=== PATIENT | female | born 1950 | race Caucasian/White ===

== ENCOUNTER 2018-03-30 15:47 | Inpatient (IN) | payer MEDICARE, OTHER ==
[2018-03-30] MEDS: LEVALBUTEROL (NEB) 1.25 MG/0.5 ML AMP INH (16:32)
[2018-03-30 16:59] LABS: ADD MAN DIFF? NO
[2018-03-30 17:01] LABS: BASOPHIL # 0.1 10^3/ul (0.0-0.1); BASOPHILS % 0.8 % (0.0-2.0); EOSINOPHILS # 0.1 10^3/ul (0.0-0.5); EOSINOPHILS % 0.7 % (0.0-7.0); HEMATOCRIT 40.9 % (37.0-47.0); HEMOGLOBIN 13.5 g/dl (12.0-16.0); IMMATURE GRANS #M 0.26 10^3/ul; IMMATURE GRANS % (M) 2.7 %; LYMPHOCYTES # 1.3 10^3/ul (0.8-2.9); LYMPHOCYTES % 13.6 % (15.0-51.0); MEAN CORPUSCULAR HEMOGLOBIN 30.1 pg (29.0-33.0); MEAN CORPUSCULAR VOLUME 91.1 fl (82.0-101.0); MEAN PLATELET VOLUME 9.7 fl (7.4-10.4); MONOCYTE # 0.9 10^3/ul (0.3-0.9); MONOCYTES % 9.1 % (0.0-11.0); NEUTROPHILS % 73.1 % (39.0-77.0); PLATELET COUNT 282 10^3/UL (140-415); RED BLOOD COUNT 4.49 10^6/ul (4.20-5.40); RED CELL DISTRIBUTION WIDTH 18.2 % (11.5-14.5)
[2018-03-30 17:01] LABS: WHITE BLOOD COUNT 9.6 10^3/ul (4.8-10.8)
[2018-03-30] MEDS: FUROSEMIDE 40 MG INJ IV (17:02)
[2018-03-30 17:17] LABS: ALANINE AMINOTRANSFERASE 20 IU/L (13-69); ALBUMIN 3.1 g/dl (3.3-4.9); ALBUMIN/GLOBULIN RATIO 1.03; ALKALINE PHOSPHATASE 207 IU/L (42-121); ANION GAP 13 (8-16); ASPARTATE AMINO TRANSFERASE 27 IU/L (15-46); BILIRUBIN,INDIRECT 0.3 mg/dl (0-1.1); BILIRUBIN,TOTAL 0.3 mg/dl (0.2-1.3); BLOOD UREA NITROGEN 22 mg/dl (7-20); CALCIUM 8.6 mg/dl (8.4-10.2); CARBON DIOXIDE 22 mmol/L (21-31); CHLORIDE 108 mmol/L (97-110); CREATININE 1.36 mg/dl (0.44-1.00); GLUCOSE 119 mg/dl (70-220); POTASSIUM 4.5 mmol/L (3.5-5.1); SODIUM 138 mmol/L (135-144); TOTAL PROTEIN 6.1 g/dl (6.1-8.1)
[2018-03-30 17:29] LABS: TROPONIN-I < 0.010 ng/ml (0.000-0.120)
[2018-03-30 17:44] LABS: B-TYPE NATRIURETIC PEPTIDE 354 PG/ML (0-125)
[2018-03-30] MEDS ORDERED: SOD CHLORIDE 0.9% 1,000 ML IV (17:49)
[2018-03-30] MEDS ORDERED: ONDANSETRON 4 MG INJ IV (18:00)
[2018-03-30] MEDS ORDERED: ACETAMINOPHEN 325 MG TAB PO (18:00)
[2018-03-30] MEDS: CEFEPIME 1GM/50 ML (PMX) 50 ML IVPB (18:17)
[2018-03-30] MEDS: VANCOMYCIN 1 GM (PMX) 250 ML IVPB (18:51)
[2018-03-30] MEDS ORDERED: morphine 2 MG INJ IV (19:00)
[2018-03-30] MEDS ORDERED: HYDROCODONE/APAP (5/325) TAB PO (19:00)
[2018-03-30] MEDS ORDERED: NACL 0.9% 3 ML SYG IV (19:00)
[2018-03-31] MEDS: ONDANSETRON 4 MG INJ IV (01:51)
[2018-03-31] MEDS: PANTOPRAZOLE (EC) 40 MG TAB PO (06:27)
[2018-03-31 07:02] LABS: ADD MAN DIFF? NO
[2018-03-31 07:11] LABS: WHITE BLOOD COUNT 8.8 10^3/ul (4.8-10.8)
[2018-03-31 07:11] LABS: BASOPHIL # 0.1 10^3/ul (0.0-0.1); BASOPHILS % 0.9 % (0.0-2.0); EOSINOPHILS % 0.5 % (0.0-7.0); HEMATOCRIT 41.6 % (37.0-47.0); HEMOGLOBIN 13.5 g/dl (12.0-16.0); IMMATURE GRANS #M 0.27 10^3/ul; IMMATURE GRANS % (M) 3.1 %; LYMPHOCYTES % 11.5 % (15.0-51.0); MEAN CORPUSCULAR HEMOGLOBIN 29.8 pg (29.0-33.0); MEAN CORPUSCULAR HGB CONC 32.5 g/dl (32.0-37.0); MEAN CORPUSCULAR VOLUME 91.8 fl (82.0-101.0); MEAN PLATELET VOLUME 10.1 fl (7.4-10.4); NEUTROPHIL # 6.4 10^3/ul (1.6-7.5); PLATELET COUNT 251 10^3/UL (140-415); RED BLOOD COUNT 4.53 10^6/ul (4.20-5.40); RED CELL DISTRIBUTION WIDTH 18.3 % (11.5-14.5)
[2018-03-31 07:29] LABS: INR 0.99; PROTIME 13.2 Sec (11.9-14.9)
[2018-03-31 07:33] LABS: ANION GAP 14 (8-16); BLOOD UREA NITROGEN 22 mg/dl (7-20); CALCIUM 8.3 mg/dl (8.4-10.2); CARBON DIOXIDE 22 mmol/L (21-31); CHLORIDE 107 mmol/L (97-110); CREATININE 1.39 mg/dl (0.44-1.00); GLUCOSE 152 mg/dl (70-220); MAGNESIUM 1.9 mg/dl (1.7-2.5); PHOSPHORUS 3.2 mg/dl (2.5-4.9); POTASSIUM 4.4 mmol/L (3.5-5.1); SODIUM 139 mmol/L (135-144)
[2018-03-31 07:52] LABS: HEMOGLOBIN A1C 5.6 % (0-5.9)
[2018-03-31] MEDS: POTASSIUM CHLORIDE (SR) 20 MEQ TAB PO (08:28)
[2018-03-31] MEDS: AMLODIPINE 10 MG TAB PO (08:28)
[2018-03-31] MEDS: HYDROXYCHLOROQUINE 200 MG TAB PO ×2 (08:28→08:42)
[2018-03-31] MEDS: LOSARTAN 50 MG TAB PO ×2 (08:29→08:41)
[2018-03-31] MEDS: LIDOCAINE 1% (MPF) 5 ML VIAL (10:13)
[2018-03-31] MEDS: ACETAMINOPHEN 325 MG TAB PO ×2 (10:32→20:23)
[2018-04-01] MEDS: PANTOPRAZOLE (EC) 40 MG TAB PO (06:32)
[2018-04-01] MEDS: POTASSIUM CHLORIDE (SR) 20 MEQ TAB PO (08:06)
[2018-04-01] MEDS: AMLODIPINE 10 MG TAB PO (08:06)
[2018-04-01] MEDS: FUROSEMIDE 40 MG INJ IV (10:22)
[2018-04-02] MEDS: PANTOPRAZOLE (EC) 40 MG TAB PO (05:33)
[2018-04-02 07:33] LABS: WHITE BLOOD COUNT 10.4 10^3/ul (4.8-10.8)
[2018-04-02 07:33] LABS: ABNORMAL IP MESSAGE 1; HEMATOCRIT 44.4 % (37.0-47.0); HEMOGLOBIN 14.5 g/dl (12.0-16.0); MEAN CORPUSCULAR HGB CONC 32.7 g/dl (32.0-37.0); MEAN CORPUSCULAR VOLUME 91.9 fl (82.0-101.0); MEAN PLATELET VOLUME 10.2 fl (7.4-10.4); PLATELET COUNT 217 10^3/UL (140-415); RED BLOOD COUNT 4.83 10^6/ul (4.20-5.40); RED CELL DISTRIBUTION WIDTH 18.3 % (11.5-14.5)
[2018-04-02 07:34] LABS: ADD MAN DIFF? YES; POSITIVE DIFF @See below
[2018-04-02 07:51] LABS: ANION GAP 14 (8-16); BLOOD UREA NITROGEN 28 mg/dl (7-20); CALCIUM 8.3 mg/dl (8.4-10.2); CARBON DIOXIDE 20 mmol/L (21-31); CHLORIDE 107 mmol/L (97-110); CREATININE 1.54 mg/dl (0.44-1.00); GLUCOSE 117 mg/dl (70-220); MAGNESIUM 1.9 mg/dl (1.7-2.5); PHOSPHORUS 2.9 mg/dl (2.5-4.9); POTASSIUM 4.8 mmol/L (3.5-5.1); SODIUM 136 mmol/L (135-144)
[2018-04-02 08:03] LABS: BAND NEUTROPHILS #M 0.6 10^3/ul (0.0-0.6); BAND NEUTROPHILS % (M) 6 % (0-4); BASOPHIL #M 0.1 10^3/ul (0.0-0.0); BASOPHILS % (M) 1 % (0-2); EOSINOPHILS % (M) 1 % (0-7); LYMPHOCYTES #M 1.1 10^3/ul (0.8-2.9); LYMPHOCYTES % (M) 11 % (15-51); METAMYELOCYTES #M 0.2 10^3/ul (0.0-0.0); METAMYELOCYTES %M 2 % (0-0); MONOCYTES % (M) 10 % (0-11); MYELOCYTES #M 0.3 10^3/ul (0.0-0.0); MYELOCYTES % (M) 3 % (0-0); PLATELET ESTIMATE NORMAL; POLYCHROMASIA 1+ (0-0); REACTIVE LYMPHOCYTES #M 0.3 10^3/ul (0.0-0.0); REACTIVE LYMPHOCYTES% (M) 3 % (0-0); SEG NEUT #M 6.6 10^3/ul (1.6-7.5); SEGMENTED NEUTROPHILS (M) % 63 % (39-77); SMUDGE%M 3 % (0-0)
[2018-04-02] MEDS ORDERED: FUROSEMIDE 40 MG INJ IV (09:00)
[2018-04-02] MEDS: POTASSIUM CHLORIDE (SR) 20 MEQ TAB PO (09:00)
[2018-04-02] MEDS: AMLODIPINE 10 MG TAB PO (11:21)
[2018-04-02] MEDS: FUROSEMIDE 40 MG INJ IV (12:15)
[2018-04-02 12:56] LABS: NIL 0.04 IU/mL; QUANTIFERON(R)-TB GOLD NEGATIVE (NEGATIVE); TB-NIL 0.31 IU/mL
[2018-04-03 07:19] LABS: ABNORMAL IP MESSAGE 1; HEMATOCRIT 42.8 % (37.0-47.0); MEAN CORPUSCULAR HEMOGLOBIN 29.4 pg (29.0-33.0); MEAN CORPUSCULAR HGB CONC 32.7 g/dl (32.0-37.0); MEAN CORPUSCULAR VOLUME 89.7 fl (82.0-101.0); MEAN PLATELET VOLUME 10.1 fl (7.4-10.4); PLATELET COUNT 196 10^3/UL (140-415); POSITIVE DIFF @See below; RED BLOOD COUNT 4.77 10^6/ul (4.20-5.40); RED CELL DISTRIBUTION WIDTH 18.2 % (11.5-14.5)
[2018-04-03 07:19] LABS: WHITE BLOOD COUNT 11.5 10^3/ul (4.8-10.8)
[2018-04-03 07:20] LABS: ADD MAN DIFF? YES
[2018-04-03] MEDS: PANTOPRAZOLE (EC) 40 MG TAB PO (07:30)
[2018-04-03 07:38] LABS: INR 0.93; PROTIME 12.6 Sec (11.9-14.9)
[2018-04-03 07:39] LABS: ANION GAP 12 (8-16); BLOOD UREA NITROGEN 33 mg/dl (7-20); CALCIUM 8.3 mg/dl (8.4-10.2); CARBON DIOXIDE 24 mmol/L (21-31); CHLORIDE 102 mmol/L (97-110); CREATININE 1.71 mg/dl (0.44-1.00); GLUCOSE 115 mg/dl (70-220); POTASSIUM 5.2 mmol/L (3.5-5.1); SODIUM 133 mmol/L (135-144)
[2018-04-03 07:48] LABS: BAND NEUTROPHILS #M 1.9 10^3/ul (0.0-0.6); BAND NEUTROPHILS % (M) 17 % (0-4); BURR CELLS 2+ (0-0); EOSINOPHILS % (M) 2 % (0-7); LYMPHOCYTES #M 0.8 10^3/ul (0.8-2.9); LYMPHOCYTES % (M) 7 % (15-51); MONOCYTE #M 0.8 10^3/ul (0.3-0.9); MONOCYTES % (M) 7 % (0-11); MYELOCYTES #M 0.3 10^3/ul (0.0-0.0); MYELOCYTES % (M) 3 % (0-0); PLATELET ESTIMATE NORMAL; POIKILOCYTOSIS 2+ (0-0); REACTIVE LYMPHOCYTES #M 0.6 10^3/ul (0.0-0.0); REACTIVE LYMPHOCYTES% (M) 6 % (0-0); SEG NEUT #M 6.9 10^3/ul (1.6-7.5); SEGMENTED NEUTROPHILS (M) % 58 % (39-77); SMUDGE%M 22 % (0-0)
[2018-04-03] MEDS: AMLODIPINE 10 MG TAB PO (07:52)
[2018-04-03] MEDS: FUROSEMIDE 40 MG INJ IV (07:52)
[2018-04-03] MEDS: POTASSIUM CHLORIDE (SR) 20 MEQ TAB PO ×2 (07:52→09:00)
[2018-04-03] MEDS ORDERED: HEPARIN 1000 UNITS/NS (A-LINE) 1,000 ML (11:14)
[2018-04-03] MEDS ORDERED: LIDOCAINE 1% (MDV) 20 ML INJ (11:14)
[2018-04-03] MEDS ORDERED: FENTAnyl 50 MCG/ML VIAL (11:25)
[2018-04-03] MEDS ORDERED: MIDAZOLAM 1 MG/ML 2 ML INJ (11:25)
[2018-04-03] MEDS ORDERED: ACETAMINOPHEN 325 MG TAB PO (12:30)
[2018-04-03] MEDS ORDERED: OXYCODONE/ACETAMINOPHEN (5/325) TAB PO (12:30)
[2018-04-03 13:02] LABS: FLD MN% 77.1 %; FLD PMN% 22.9 %; FLD RBC 1000 /uL; FLD WBC 201 /cmm
[2018-04-03 13:30] LABS: FLD CLARITY CLOUDY; FLD COLOR YELLOW; PATH REVIEW? YES
[2018-04-03 13:30] LABS: FLD TYPE THORACENTHESIS
[2018-04-03 13:44] LABS: FLUID GLUCOSE 115 mg/dl; FLUID TYPE PERICARDIAL FLUID
[2018-04-03 13:46] LABS: FLUID TOTAL PROTEIN 3.4 g/dl
[2018-04-03 13:48] LABS: FLUID LD 2790 U/L; FLUID TYPE PERICARDIAL FLUID
[2018-04-03] MEDS: ONDANSETRON 4 MG INJ IV (19:00)
[2018-04-04 05:14] LABS: ABNORMAL IP MESSAGE 1; HEMATOCRIT 42.6 % (37.0-47.0); MEAN CORPUSCULAR HEMOGLOBIN 29.8 pg (29.0-33.0); MEAN CORPUSCULAR HGB CONC 32.9 g/dl (32.0-37.0); MEAN CORPUSCULAR VOLUME 90.6 fl (82.0-101.0); MEAN PLATELET VOLUME 10.3 fl (7.4-10.4); PLATELET COUNT 175 10^3/UL (140-415); RED CELL DISTRIBUTION WIDTH 18.3 % (11.5-14.5)
[2018-04-04 05:14] LABS: WHITE BLOOD COUNT 12.1 10^3/ul (4.8-10.8)
[2018-04-04] MEDS: ONDANSETRON 4 MG INJ IV ×4 (05:35→21:59)
[2018-04-04 05:39] LABS: ANION GAP 12 (8-16); BLOOD UREA NITROGEN 35 mg/dl (7-20); CARBON DIOXIDE 23 mmol/L (21-31); CHLORIDE 104 mmol/L (97-110); CREATININE 1.85 mg/dl (0.44-1.00); GLUCOSE 122 mg/dl (70-220); POTASSIUM 5.1 mmol/L (3.5-5.1); SODIUM 134 mmol/L (135-144)
[2018-04-04 06:22] LABS: POSITIVE DIFF @See below
[2018-04-04 06:23] LABS: ADD MAN DIFF? YES
[2018-04-04] MEDS: PANTOPRAZOLE (EC) 40 MG TAB PO (07:03)
[2018-04-04 08:08] LABS: ANISOCYTOSIS 3+ (0-0); BAND NEUTROPHILS #M 1.5 10^3/ul (0.0-0.6); BAND NEUTROPHILS % (M) 13 % (0-4); GIANT THROMBO% (M) 2 % (0-0); LYMPHOCYTES #M 1.5 10^3/ul (0.8-2.9); LYMPHOCYTES % (M) 13 % (15-51); METAMYELOCYTES #M 0.2 10^3/ul (0.0-0.0); METAMYELOCYTES %M 2 % (0-0); MONOCYTE #M 0.1 10^3/ul (0.3-0.9); MONOCYTES % (M) 1 % (0-11); MYELOCYTES #M 0.3 10^3/ul (0.0-0.0); MYELOCYTES % (M) 3 % (0-0); PLATELET ESTIMATE NORMAL; POIKILOCYTOSIS 3+ (0-0); POLYCHROMASIA 3+ (0-0); SEG NEUT #M 8.4 10^3/ul (1.6-7.5); SEGMENTED NEUTROPHILS (M) % 68 % (39-77); SMUDGE%M 5 % (0-0)
[2018-04-04] MEDS: AMLODIPINE 10 MG TAB PO (09:54)
[2018-04-04] MEDS: POTASSIUM CHLORIDE (SR) 20 MEQ TAB PO (09:55)
[2018-04-05 05:31] LABS: WHITE BLOOD COUNT 14.5 10^3/ul (4.8-10.8)
[2018-04-05 05:31] LABS: ABNORMAL IP MESSAGE 1; HEMATOCRIT 41.2 % (37.0-47.0); HEMOGLOBIN 13.4 g/dl (12.0-16.0); MEAN CORPUSCULAR HEMOGLOBIN 29.5 pg (29.0-33.0); MEAN CORPUSCULAR HGB CONC 32.5 g/dl (32.0-37.0); MEAN CORPUSCULAR VOLUME 90.5 fl (82.0-101.0); MEAN PLATELET VOLUME 10.5 fl (7.4-10.4); RED BLOOD COUNT 4.55 10^6/ul (4.20-5.40); RED CELL DISTRIBUTION WIDTH 18.3 % (11.5-14.5)
[2018-04-05 06:01] LABS: ADD MAN DIFF? YES; PLATELET COUNT 128 10^3/UL (140-415); POSITIVE DIFF @See below
[2018-04-05 06:03] LABS: ANION GAP 10 (8-16); BLOOD UREA NITROGEN 37 mg/dl (7-20); CALCIUM 7.8 mg/dl (8.4-10.2); CARBON DIOXIDE 23 mmol/L (21-31); CHLORIDE 105 mmol/L (97-110); CREATININE 2.05 mg/dl (0.44-1.00); GLUCOSE 115 mg/dl (70-220); MAGNESIUM 1.9 mg/dl (1.7-2.5); PHOSPHORUS 3.2 mg/dl (2.5-4.9); POTASSIUM 5.5 mmol/L (3.5-5.1); SODIUM 132 mmol/L (135-144)
[2018-04-05] MEDS: PANTOPRAZOLE (EC) 40 MG TAB PO (06:21)
[2018-04-05] MEDS ORDERED: DIPHENHYDRAMINE 50 MG INJ IM (06:30)
[2018-04-05] MEDS: DIPHENHYDRAMINE 50 MG CAP PO ×2 (07:21→21:31)
[2018-04-05] MEDS: NA POLYST SULFON 15 GM/60 ML BTL PO (07:21)
[2018-04-05 08:08] LABS: BAND NEUTROPHILS #M 0.2 10^3/ul (0.0-0.6); BAND NEUTROPHILS % (M) 2 % (0-4); LYMPHOCYTES #M 0.7 10^3/ul (0.8-2.9); LYMPHOCYTES % (M) 5 % (15-51); METAMYELOCYTES #M 0.2 10^3/ul (0.0-0.0); METAMYELOCYTES %M 2 % (0-0); MONOCYTE #M 0.4 10^3/ul (0.3-0.9); MONOCYTES % (M) 3 % (0-11); MYELOCYTES #M 0.5 10^3/ul (0.0-0.0); MYELOCYTES % (M) 4 % (0-0); PLATELET ESTIMATE DECREASED; REACTIVE LYMPHOCYTES #M 0.2 10^3/ul (0.0-0.0); REACTIVE LYMPHOCYTES% (M) 2 % (0-0); SEG NEUT #M 11.9 10^3/ul (1.6-7.5); SEGMENTED NEUTROPHILS (M) % 82 % (39-77); SMUDGE%M 56 % (0-0)
[2018-04-05] MEDS: POTASSIUM CHLORIDE (SR) 20 MEQ TAB PO (09:00)
[2018-04-05] MEDS: LACTOBACILLUS RHAMNOSUS CAP PO (10:08)
[2018-04-05] MEDS: FUROSEMIDE 40 MG INJ IV (18:04)
[2018-04-05] MEDS: ONDANSETRON 4 MG INJ IV (23:19)
[2018-04-06 05:54] LABS: WHITE BLOOD COUNT 18.2 10^3/ul (4.8-10.8)
[2018-04-06 05:54] LABS: ABNORMAL IP MESSAGE 1; HEMATOCRIT 44.2 % (37.0-47.0); HEMOGLOBIN 14.5 g/dl (12.0-16.0); MEAN CORPUSCULAR HEMOGLOBIN 29.7 pg (29.0-33.0); MEAN CORPUSCULAR HGB CONC 32.8 g/dl (32.0-37.0); MEAN CORPUSCULAR VOLUME 90.4 fl (82.0-101.0); NUCLEATED RED BLOOD CELLS% 0.1 /100WBC (0.0-0.0); PLATELET COUNT 126 10^3/UL (140-415); RED BLOOD COUNT 4.89 10^6/ul (4.20-5.40); RED CELL DISTRIBUTION WIDTH 17.9 % (11.5-14.5)
[2018-04-06 06:07] LABS: ADD MAN DIFF? YES; POSITIVE DIFF @See below
[2018-04-06] MEDS: PANTOPRAZOLE (EC) 40 MG TAB PO (06:14)
[2018-04-06 06:26] LABS: ANION GAP 10 (8-16); BLOOD UREA NITROGEN 38 mg/dl (7-20); CALCIUM 7.8 mg/dl (8.4-10.2); CARBON DIOXIDE 21 mmol/L (21-31); CHLORIDE 104 mmol/L (97-110); CREATININE 2.07 mg/dl (0.44-1.00); GLUCOSE 114 mg/dl (70-220); POTASSIUM 5.1 mmol/L (3.5-5.1); SODIUM 130 mmol/L (135-144)
[2018-04-06 08:39] LABS: ANISOCYTOSIS 1+ (0-0); BAND NEUTROPHILS #M 3.2 10^3/ul (0.0-0.6); BAND NEUTROPHILS % (M) 18 % (0-4); BURR CELLS 3+ (0-0); LYMPHOCYTES #M 0.7 10^3/ul (0.8-2.9); LYMPHOCYTES % (M) 4 % (15-51); METAMYELOCYTES #M 0.1 10^3/ul (0.0-0.0); METAMYELOCYTES %M 1 % (0-0); MONOCYTES % (M) 6 % (0-11); MYELOCYTES #M 1.4 10^3/ul (0.0-0.0); MYELOCYTES % (M) 8 % (0-0); PLATELET ESTIMATE DECREASED; POIKILOCYTOSIS 3+ (0-0); POLYCHROMASIA 1+ (0-0); SEGMENTED NEUTROPHILS (M) % 63 % (39-77); SMUDGE%M 10 % (0-0)
[2018-04-06] MEDS: FUROSEMIDE 40 MG INJ IV (08:58)
[2018-04-06] MEDS: POTASSIUM CHLORIDE (SR) 20 MEQ TAB PO (08:59)
[2018-04-06] MEDS: LACTOBACILLUS RHAMNOSUS CAP PO (09:00)
[2018-04-06] MEDS: ONDANSETRON 4 MG INJ IV (09:08)
[2018-04-06] MEDS ORDERED: METOLAZONE 2.5 MG TAB PO (12:00)
[2018-04-06] MEDS: BUMETANIDE 2 MG in DEXTROSE 5% 17 ML IVPB (12:59)
[2018-04-06] MEDS ORDERED: ISOSORBIDE DINITRATE 5 MG TAB PO (13:00)
[2018-04-06] MEDS: METOLAZONE 5 MG TAB PO (14:08)
[2018-04-06] MEDS ORDERED: morphine LIQ (10 MG/5 ML) CUP PO (15:00)
[2018-04-07 06:02] LABS: WHITE BLOOD COUNT 21.3 10^3/ul (4.8-10.8)
[2018-04-07 06:02] LABS: ABNORMAL IP MESSAGE 1; HEMATOCRIT 44.8 % (37.0-47.0); HEMOGLOBIN 14.9 g/dl (12.0-16.0); MEAN CORPUSCULAR HEMOGLOBIN 29.6 pg (29.0-33.0); MEAN CORPUSCULAR HGB CONC 33.3 g/dl (32.0-37.0); MEAN CORPUSCULAR VOLUME 89.1 fl (82.0-101.0); MEAN PLATELET VOLUME 10.5 fl (7.4-10.4); NUCLEATED RED BLOOD CELLS% 0.1 /100WBC (0.0-0.0); PLATELET COUNT 100 10^3/UL (140-415); RED BLOOD COUNT 5.03 10^6/ul (4.20-5.40); RED CELL DISTRIBUTION WIDTH 18.1 % (11.5-14.5)
[2018-04-07 06:05] LABS: POSITIVE DIFF @See below
[2018-04-07 06:06] LABS: ADD MAN DIFF? YES
[2018-04-07 06:52] LABS: ALBUMIN 2.3 g/dl (3.3-4.9); ANION GAP 13 (8-16); BLOOD UREA NITROGEN 44 mg/dl (7-20); CALCIUM 7.8 mg/dl (8.4-10.2); CARBON DIOXIDE 21 mmol/L (21-31); CHLORIDE 101 mmol/L (97-110); CREATININE 2.45 mg/dl (0.44-1.00); GLUCOSE 115 mg/dl (70-220); MAGNESIUM 1.9 mg/dl (1.7-2.5); POTASSIUM 4.8 mmol/L (3.5-5.1); SODIUM 130 mmol/L (135-144)
[2018-04-07 07:50] LABS: ANISOCYTOSIS 1+ (0-0); BAND NEUTROPHILS #M 5.1 10^3/ul (0.0-0.6); BAND NEUTROPHILS % (M) 24 % (0-4); GIANT THROMBO% (M) 2 % (0-0); LYMPHOCYTES #M 0.6 10^3/ul (0.8-2.9); LYMPHOCYTES % (M) 3 % (15-51); METAMYELOCYTES #M 0.4 10^3/ul (0.0-0.0); METAMYELOCYTES %M 2 % (0-0); MONOCYTE #M 0.8 10^3/ul (0.3-0.9); MONOCYTES % (M) 4 % (0-11); MYELOCYTES #M 0.8 10^3/ul (0.0-0.0); MYELOCYTES % (M) 4 % (0-0); PLATELET ESTIMATE DECREASED; POIKILOCYTOSIS 2+ (0-0); REACTIVE LYMPHOCYTES #M 0.4 10^3/ul (0.0-0.0); REACTIVE LYMPHOCYTES% (M) 2 % (0-0); SEG NEUT #M 14.1 10^3/ul (1.6-7.5); SEGMENTED NEUTROPHILS (M) % 61 % (39-77); SMUDGE%M 13 % (0-0)
[2018-04-07] MEDS: POTASSIUM CHLORIDE (SR) 20 MEQ TAB PO (08:35)
[2018-04-07] MEDS: LACTOBACILLUS RHAMNOSUS CAP PO (08:36)
[2018-04-07] MEDS: FAMOTIDINE 20 MG TAB PO (08:36)
[2018-04-07] MEDS: ONDANSETRON 4 MG INJ IV (10:50)
[2018-04-07] MEDS: ACETAMINOPHEN 325 MG TAB PO ×2 (10:50→18:13)
[2018-04-07] MEDS: ALBUTEROL 0.083% (NEB) 2.5 MG/3 ML AMP HHN ×3 (11:20→20:39)
[2018-04-07] MEDS: TRIAMCINOLONE ACET 0.1% ORAB 5 GM MM ×2 (11:30→17:30)
[2018-04-07] MEDS: hydrALAzine 20 MG INJ IV (11:50)
[2018-04-07] MEDS: FUROSEMIDE 40 MG INJ IV ×2 (12:54→18:13)
[2018-04-07 13:36] LABS: AADO2 Arterial 440.5 mmHg (7.0-24.0); Allen Test ACCEPTAB; Arterial Base Excess -2.6 mmol/L (-3.0-3); Arterial Blood Gas Oxygen Sat 99.4 mmHG (95.0-98.0); Arterial COHb 0.4 % (0.0-3.0); Arterial Fraction of Oxyhgb 98.7 % (93.0-99.0); Arterial HCO3 18.2 mmol/L (22.0-26.0); Arterial MetHb 0.3 % (0.0-1.5); Arterial Total Hemglobin 15.6 g/dl (12.0-18.0); Arterial pCO2 23.4 mmhg (35-45); MODE MASK - NRB; Site Right Radial
[2018-04-07] MEDS: BUMETANIDE 1 MG INJ IV (13:36)
[2018-04-07] MEDS: LIDOCAINE 1% (MPF) 5 ML VIAL (15:17)
[2018-04-07 15:58] LABS: FLUID TOTAL PROTEIN 3.3 g/dl
[2018-04-07] MEDS: CEFEPIME 1GM/50 ML (PMX) 50 ML IVPB (16:19)
[2018-04-07 17:43] LABS: AADO2 Arterial 172.1 mmHg (7.0-24.0); Arterial Base Excess -3.4 mmol/L (-3.0-3); Arterial Blood Gas Oxygen Sat 95.7 mmHG (95.0-98.0); Arterial COHb 0.4 % (0.0-3.0); Arterial HCO3 19.3 mmol/L (22.0-26.0); Arterial MetHb 0.3 % (0.0-1.5); Arterial Total Hemglobin 15.9 g/dl (12.0-18.0); Arterial pCO2 29.3 mmhg (35-45); Blood Gas IEPAP 15/5; Blood Gas PS 10; MODE MASK - BIPAP; Site Right Brachial
[2018-04-08] MEDS: ONDANSETRON 4 MG INJ IV ×3 (01:10→21:04)
[2018-04-08] MEDS: ALBUTEROL 0.083% (NEB) 2.5 MG/3 ML AMP HHN ×5 (01:35→21:16)
[2018-04-08 05:46] LABS: ABNORMAL IP MESSAGE 1; HEMATOCRIT 44.2 % (37.0-47.0); HEMOGLOBIN 15.2 g/dl (12.0-16.0); MEAN CORPUSCULAR HEMOGLOBIN 30.1 pg (29.0-33.0); MEAN CORPUSCULAR HGB CONC 34.4 g/dl (32.0-37.0); MEAN CORPUSCULAR VOLUME 87.5 fl (82.0-101.0); MEAN PLATELET VOLUME 10.6 fl (7.4-10.4); NUCLEATED RED BLOOD CELLS% 0.1 /100WBC (0.0-0.0); PLATELET COUNT 91 10^3/UL (140-415); RED BLOOD COUNT 5.05 10^6/ul (4.20-5.40); RED CELL DISTRIBUTION WIDTH 18.2 % (11.5-14.5)
[2018-04-08 05:46] LABS: WHITE BLOOD COUNT 22.9 10^3/ul (4.8-10.8)
[2018-04-08 06:20] LABS: ALBUMIN 2.3 g/dl (3.3-4.9); ANION GAP 13 (8-16); BLOOD UREA NITROGEN 54 mg/dl (7-20); CALCIUM 7.6 mg/dl (8.4-10.2); CARBON DIOXIDE 19 mmol/L (21-31); CHLORIDE 102 mmol/L (97-110); GLUCOSE 115 mg/dl (70-220); MAGNESIUM 1.8 mg/dl (1.7-2.5); PHOSPHORUS 4.9 mg/dl (2.5-4.9); POTASSIUM 5.1 mmol/L (3.5-5.1); SODIUM 129 mmol/L (135-144)
[2018-04-08 06:32] LABS: ADD MAN DIFF? YES; POSITIVE DIFF @See below
[2018-04-08] MEDS: TRIAMCINOLONE ACET 0.1% ORAB 5 GM MM ×3 (06:50→17:38)
[2018-04-08] MEDS: FUROSEMIDE 40 MG INJ IV (06:50)
[2018-04-08 08:27] LABS: ANISOCYTOSIS 1+ (0-0); BAND NEUTROPHILS #M 3.6 10^3/ul (0.0-0.6); BAND NEUTROPHILS % (M) 16 % (0-4); BURR CELLS 3+ (0-0); LYMPHOCYTES #M 0.9 10^3/ul (0.8-2.9); LYMPHOCYTES % (M) 4 % (15-51); METAMYELOCYTES #M 0.4 10^3/ul (0.0-0.0); METAMYELOCYTES %M 2 % (0-0); MONOCYTE #M 1.6 10^3/ul (0.3-0.9); MONOCYTES % (M) 7 % (0-11); MYELOCYTES #M 0.4 10^3/ul (0.0-0.0); MYELOCYTES % (M) 2 % (0-0); PLATELET ESTIMATE DECREASED; POIKILOCYTOSIS 3+ (0-0); POLYCHROMASIA 1+ (0-0); REACTIVE LYMPHOCYTES #M 0.2 10^3/ul (0.0-0.0); REACTIVE LYMPHOCYTES% (M) 1 % (0-0); SEG NEUT #M 16.4 10^3/ul (1.6-7.5); SEGMENTED NEUTROPHILS (M) % 68 % (39-77); SMUDGE%M 2 % (0-0)
[2018-04-08] MEDS: FAMOTIDINE 20 MG TAB PO (09:16)
[2018-04-08] MEDS: LACTOBACILLUS RHAMNOSUS CAP PO (09:20)
[2018-04-08] MEDS ORDERED: DOCUSATE SODIUM 100 MG CAP PO (10:00)
[2018-04-08] MEDS ORDERED: DIPHENHYDRAMINE 25 MG CAP (11:58)
[2018-04-08] MEDS: DIPHENHYDRAMINE 25 MG CAP PO (12:06)
[2018-04-08] MEDS: DOCUSATE SODIUM 100 MG CAP PO (12:06)
[2018-04-08] MEDS: POLYETHYLENE GLYCOL 17 GM PACKET PO (12:06)
[2018-04-08] MEDS ORDERED: DIPHENHYDRAMINE 50 MG CAP PO (13:00)
[2018-04-08 14:49] LABS: ANION GAP 13 (8-16); BLOOD UREA NITROGEN 57 mg/dl (7-20); CALCIUM 7.6 mg/dl (8.4-10.2); CARBON DIOXIDE 20 mmol/L (21-31); CHLORIDE 100 mmol/L (97-110); GLUCOSE 121 mg/dl (70-220); POTASSIUM 5.4 mmol/L (3.5-5.1); SODIUM 128 mmol/L (135-144)
[2018-04-08 14:56] LABS: CREATININE 3.24 mg/dl (0.44-1.00)
[2018-04-08] MEDS: CEFEPIME 1GM/50 ML (PMX) 50 ML IVPB (15:55)
[2018-04-08 15:57] LABS: ADD UMIC YES; UR ASCORBIC ACID NEGATIVE (NEGATIVE); UR BACTERIA FEW /HPF (NONE SEEN); UR BILIRUBIN (Dip) NEGATIVE (NEGATIVE); UR BLOOD (Dip) NEGATIVE (NEGATIVE); UR CLARITY SLIGHTLY CLOUDY (CLEAR); UR COLOR YELLOW (YELLOW); UR GLUCOSE (Dip) NEGATIVE (NEGATIVE); UR HYALINE CAST FEW /HPF (NONE SEEN); UR KETONES (Dip) NEGATIVE (NEGATIVE); UR LEUKOCYTE ESTERASE (Dip) 2+ Leu/ul (NEGATIVE); UR NITRITE (Dip) NEGATIVE (NEGATIVE); UR RBC 3 /HPF (0-5); UR SPECIFIC GRAVITY (Dip) 1.012 (1.003-1.030); UR SQUAMOUS EPITHELIAL CELL FEW /HPF (FEW); UR TOTAL PROTEIN (Dip) NEGATIVE (NEGATIVE); UR TRANSITIONAL EPI CELL FEW /HPF (NONE SEEN); UR UROBILINOGEN (Dip) NEGATIVE (NEGATIVE); UR WBC 40 /HPF (0-5)
[2018-04-08 16:04] LABS: CREATININE,URINE RANDOM 109.21 mg/dl (20-320)
[2018-04-08 16:07] LABS: SODIUM,URINE RANDOM < 13 mmol/L (30-90)
[2018-04-09] MEDS: ALBUMIN HUMAN 25% 100 ML IV ×2 (00:19→03:52)
[2018-04-09] MEDS: ALBUTEROL 0.083% (NEB) 2.5 MG/3 ML AMP HHN ×4 (01:53→20:00)
[2018-04-09 06:07] LABS: ABNORMAL IP MESSAGE 1; HEMATOCRIT 39.4 % (37.0-47.0); HEMOGLOBIN 12.8 g/dl (12.0-16.0); MEAN CORPUSCULAR HEMOGLOBIN 29.8 pg (29.0-33.0); MEAN CORPUSCULAR HGB CONC 32.5 g/dl (32.0-37.0); MEAN CORPUSCULAR VOLUME 91.8 fl (82.0-101.0); MEAN PLATELET VOLUME 11.8 fl (7.4-10.4); NUCLEATED RED BLOOD CELLS% 0.2 /100WBC (0.0-0.0); PLATELET COUNT 72 10^3/UL (140-415); RED BLOOD COUNT 4.29 10^6/ul (4.20-5.40); RED CELL DISTRIBUTION WIDTH 18.2 % (11.5-14.5)
[2018-04-09] MEDS: SOD CHLORIDE 0.9% 250 ML IV (06:17)
[2018-04-09 06:21] LABS: ADD MAN DIFF? YES; POSITIVE DIFF @See below
[2018-04-09 06:44] LABS: ANION GAP 16 (8-16); BLOOD UREA NITROGEN 58 mg/dl (7-20); CALCIUM 7.9 mg/dl (8.4-10.2); CARBON DIOXIDE 21 mmol/L (21-31); CHLORIDE 98 mmol/L (97-110); GLUCOSE 85 mg/dl (70-220); MAGNESIUM 1.9 mg/dl (1.7-2.5); PHOSPHORUS 4.9 mg/dl (2.5-4.9); POTASSIUM 4.9 mmol/L (3.5-5.1); SODIUM 130 mmol/L (135-144)
[2018-04-09 06:54] LABS: CREATININE 3.28 mg/dl (0.44-1.00)
[2018-04-09] MEDS ORDERED: LIDOCAINE 2% (SDV) 5 ML INJ (07:00)
[2018-04-09] MEDS ORDERED: CEFAZOLIN 1 GM INJ (07:00)
[2018-04-09] MEDS: SOD CHLORIDE 0.9% 1,000 ML IV ×2 (07:30→20:40)
[2018-04-09] MEDS: TRIAMCINOLONE ACET 0.1% ORAB 5 GM MM ×3 (07:30→17:20)
[2018-04-09 07:48] LABS: ANISOCYTOSIS 1+ (0-0); BAND NEUTROPHILS #M 6.6 10^3/ul (0.0-0.6); BAND NEUTROPHILS % (M) 29 % (0-4); GIANT THROMBO% (M) 2 % (0-0); LYMPHOCYTES #M 0.4 10^3/ul (0.8-2.9); LYMPHOCYTES % (M) 2 % (15-51); METAMYELOCYTES #M 0.9 10^3/ul (0.0-0.0); METAMYELOCYTES %M 4 % (0-0); MICROCYTOSIS 1+ (0-0); MONOCYTE #M 0.2 10^3/ul (0.3-0.9); MONOCYTES % (M) 1 % (0-11); MYELOCYTES #M 1.1 10^3/ul (0.0-0.0); MYELOCYTES % (M) 5 % (0-0); PLATELET ESTIMATE SIG DECREASED; REACTIVE LYMPHOCYTES #M 0.2 10^3/ul (0.0-0.0); REACTIVE LYMPHOCYTES% (M) 1 % (0-0); SEG NEUT #M 14.9 10^3/ul (1.6-7.5); SEGMENTED NEUTROPHILS (M) % 58 % (39-77); SMUDGE%M 4 % (0-0)
[2018-04-09] MEDS ORDERED: FENTAnyl 50 MCG/ML VIAL (07:58)
[2018-04-09] MEDS ORDERED: MIDAZOLAM 1 MG/ML 2 ML INJ (07:58)
[2018-04-09] MEDS ORDERED: METOCLOPRAMIDE 10 MG INJ (07:59)
[2018-04-09] MEDS: FAMOTIDINE 20 MG TAB PO (09:00)
[2018-04-09] MEDS: DOCUSATE SODIUM 100 MG CAP PO (09:00)
[2018-04-09] MEDS: LACTOBACILLUS RHAMNOSUS CAP PO (09:00)
[2018-04-09] MEDS: POLYETHYLENE GLYCOL 17 GM PACKET PO (09:00)
[2018-04-09] MEDS ORDERED: IOHEXOL 300MG/ML 30 ML BTL (09:38)
[2018-04-09] MEDS ORDERED: ONDANSETRON 4 MG INJ IV (10:00)
[2018-04-09] MEDS ORDERED: IPRATROPIUM (NEB) 0.5 MG/2.5 ML AMP HHN (10:00)
[2018-04-09] MEDS ORDERED: HYDROmorphONE 1 MG/5 ML IV SYRINGE IV ×2 (10:00)
[2018-04-09] MEDS ORDERED: LEVALBUTEROL (NEB) 1.25 MG/0.5 ML AMP HHN (10:00)
[2018-04-09] MEDS ORDERED: DIPHENHYDRAMINE 50 MG INJ IV (10:00)
[2018-04-09] MEDS ORDERED: FENTAnyl 50 MCG/ML VIAL IV (10:00)
[2018-04-09] MEDS: LIDOCAINE 2% (SDV) 5 ML INJ INJ (11:02)
[2018-04-09] MEDS ORDERED: ETOMIDATE 20 MG INJ (11:33)
[2018-04-09 14:30] LABS: ANION GAP 15 (8-16); BLOOD UREA NITROGEN 61 mg/dl (7-20); CALCIUM 8.5 mg/dl (8.4-10.2); CARBON DIOXIDE 16 mmol/L (21-31); CHLORIDE 103 mmol/L (97-110); GLUCOSE 87 mg/dl (70-220); POTASSIUM 4.8 mmol/L (3.5-5.1); SODIUM 129 mmol/L (135-144)
[2018-04-09 15:01] LABS: CREATININE 3.08 mg/dl (0.44-1.00)
[2018-04-09] MEDS: CEFEPIME 1GM/50 ML (PMX) 50 ML IVPB (16:26)
[2018-04-09] MEDS: ONDANSETRON 4 MG INJ IV ×2 (16:26→20:32)
[2018-04-09] MEDS: morphine 2 MG INJ IV ×2 (16:26→20:47)
[2018-04-09 21:59] LABS: RHEUMATOID FACTOR NEGATIVE (NEGATIVE)
[2018-04-10] MEDS: ALBUTEROL 0.083% (NEB) 2.5 MG/3 ML AMP HHN ×4 (02:00→19:36)
[2018-04-10] MEDS: ONDANSETRON 4 MG INJ IV ×4 (02:30→22:47)
[2018-04-10 06:31] LABS: WHITE BLOOD COUNT 27.9 10^3/ul (4.8-10.8)
[2018-04-10 06:31] LABS: ABNORMAL IP MESSAGE 1; HEMATOCRIT 47.1 % (37.0-47.0); HEMOGLOBIN 15.5 g/dl (12.0-16.0); MEAN CORPUSCULAR HEMOGLOBIN 29.5 pg (29.0-33.0); MEAN CORPUSCULAR HGB CONC 32.9 g/dl (32.0-37.0); MEAN CORPUSCULAR VOLUME 89.5 fl (82.0-101.0); MEAN PLATELET VOLUME 10.4 fl (7.4-10.4); NUCLEATED RED BLOOD CELLS% 0.3 /100WBC (0.0-0.0); PLATELET COUNT 74 10^3/UL (140-415); RED BLOOD COUNT 5.26 10^6/ul (4.20-5.40); RED CELL DISTRIBUTION WIDTH 19.3 % (11.5-14.5)
[2018-04-10 06:34] LABS: POSITIVE DIFF @See below
[2018-04-10 06:35] LABS: ADD MAN DIFF? YES
[2018-04-10 07:22] LABS: ANION GAP 13 (8-16); BLOOD UREA NITROGEN 61 mg/dl (7-20); CALCIUM 7.9 mg/dl (8.4-10.2); CARBON DIOXIDE 16 mmol/L (21-31); CHLORIDE 105 mmol/L (97-110); GLUCOSE 71 mg/dl (70-220); MAGNESIUM 1.9 mg/dl (1.7-2.5); PHOSPHORUS 4.7 mg/dl (2.5-4.9); SODIUM 129 mmol/L (135-144)
[2018-04-10] MEDS: TRIAMCINOLONE ACET 0.1% ORAB 5 GM MM ×3 (07:30→16:51)
[2018-04-10 07:33] LABS: CREATININE 3.17 mg/dl (0.44-1.00)
[2018-04-10 08:37] LABS: ANISOCYTOSIS 1+ (0-0); BAND NEUTROPHILS #M 5.8 10^3/ul (0.0-0.6); BAND NEUTROPHILS % (M) 21 % (0-4); GIANT THROMBO% (M) 1 % (0-0); LYMPHOCYTES #M 1.1 10^3/ul (0.8-2.9); LYMPHOCYTES % (M) 4 % (15-51); METAMYELOCYTES #M 1.6 10^3/ul (0.0-0.0); METAMYELOCYTES %M 6 % (0-0); MONOCYTE #M 0.2 10^3/ul (0.3-0.9); MONOCYTES % (M) 1 % (0-11); MYELOCYTES #M 1.6 10^3/ul (0.0-0.0); MYELOCYTES % (M) 6 % (0-0); PLATELET ESTIMATE DECREASED; POIKILOCYTOSIS 3+ (0-0); SEG NEUT #M 18.9 10^3/ul (1.6-7.5); SEGMENTED NEUTROPHILS (M) % 62 % (39-77); SMUDGE%M 4 % (0-0)
[2018-04-10] MEDS: POLYETHYLENE GLYCOL 17 GM PACKET PO (09:01)
[2018-04-10] MEDS: DOCUSATE SODIUM 100 MG CAP PO (09:01)
[2018-04-10] MEDS: FAMOTIDINE 20 MG TAB PO (09:01)
[2018-04-10] MEDS: LACTOBACILLUS RHAMNOSUS CAP PO (09:12)
[2018-04-10] MEDS: SOD CHLORIDE 0.9% 1,000 ML IV (11:01)
[2018-04-10 13:32] LABS: ANA SCREEN NEGATIVE (NEGATIVE); ANCA SCREEN NEGATIVE (NEGATIVE)
[2018-04-10 15:01] LABS: CREATININE, RANDOM URINE 126 mg/dL (20-320); MICROALBUMIN/CREATININE RATIO 32 (<30)
[2018-04-10 15:47] LABS: MYELOPEROXIDASE ANTIBODY <1.0 AI; PROTEINASE-3 ANTIBODY <1.0 AI
[2018-04-11] MEDS: ALBUTEROL 0.083% (NEB) 2.5 MG/3 ML AMP HHN ×4 (01:11→20:36)
[2018-04-11] MEDS: SOD CHLORIDE 0.9% 1,000 ML IV (01:40)
[2018-04-11] MEDS: ONDANSETRON 4 MG INJ IV ×3 (05:04→21:25)
[2018-04-11 06:44] LABS: ABNORMAL IP MESSAGE 1; HEMATOCRIT 47.2 % (37.0-47.0); HEMOGLOBIN 15.8 g/dl (12.0-16.0); MEAN CORPUSCULAR HEMOGLOBIN 29.9 pg (29.0-33.0); MEAN CORPUSCULAR HGB CONC 33.5 g/dl (32.0-37.0); MEAN CORPUSCULAR VOLUME 89.2 fl (82.0-101.0); MEAN PLATELET VOLUME 11.1 fl (7.4-10.4); NUCLEATED RED BLOOD CELLS% 0.3 /100WBC (0.0-0.0); PLATELET COUNT 87 10^3/UL (140-415); RED BLOOD COUNT 5.29 10^6/ul (4.20-5.40); RED CELL DISTRIBUTION WIDTH 19.5 % (11.5-14.5)
[2018-04-11 06:44] LABS: WHITE BLOOD COUNT 26.4 10^3/ul (4.8-10.8)
[2018-04-11 07:09] LABS: ANION GAP 16 (8-16); BLOOD UREA NITROGEN 67 mg/dl (7-20); CALCIUM 7.8 mg/dl (8.4-10.2); CARBON DIOXIDE 18 mmol/L (21-31); CHLORIDE 101 mmol/L (97-110); GLUCOSE 100 mg/dl (70-220); PHOSPHORUS 4.8 mg/dl (2.5-4.9); POTASSIUM 5.5 mmol/L (3.5-5.1); SODIUM 129 mmol/L (135-144)
[2018-04-11] MEDS: TRIAMCINOLONE ACET 0.1% ORAB 5 GM MM ×3 (07:22→17:51)
[2018-04-11 07:26] LABS: CREATININE 3.35 mg/dl (0.44-1.00)
[2018-04-11 07:27] LABS: ADD MAN DIFF? YES; POSITIVE DIFF @See below
[2018-04-11 08:50] LABS: ANISOCYTOSIS 1+ (0-0); BAND NEUTROPHILS #M 0.5 10^3/ul (0.0-0.6); BAND NEUTROPHILS % (M) 2 % (0-4); BURR CELLS 1+ (0-0); EOSINOPHILS % (M) 1 % (0-7); GIANT THROMBO% (M) 1 % (0-0); LYMPHOCYTES #M 0.7 10^3/ul (0.8-2.9); LYMPHOCYTES % (M) 3 % (15-51); METAMYELOCYTES #M 0.7 10^3/ul (0.0-0.0); METAMYELOCYTES %M 3 % (0-0); MONOCYTE #M 0.5 10^3/ul (0.3-0.9); MONOCYTES % (M) 2 % (0-11); MYELOCYTES #M 2.1 10^3/ul (0.0-0.0); MYELOCYTES % (M) 8 % (0-0); PLATELET ESTIMATE DECREASED; POIKILOCYTOSIS 1+ (0-0); SEG NEUT #M 21.5 10^3/ul (1.6-7.5); SEGMENTED NEUTROPHILS (M) % 81 % (39-77); SMUDGE%M 6 % (0-0)
[2018-04-11] MEDS: POLYETHYLENE GLYCOL 17 GM PACKET PO (09:00)
[2018-04-11] MEDS: FAMOTIDINE 20 MG TAB PO (09:00)
[2018-04-11] MEDS: LACTOBACILLUS RHAMNOSUS CAP PO (09:00)
[2018-04-11] MEDS: DOCUSATE SODIUM 100 MG CAP PO (09:00)
[2018-04-11] MEDS: NA POLYST SULFON 15 GM/60 ML BTL PO (09:00)
[2018-04-12] MEDS: ALBUTEROL 0.083% (NEB) 2.5 MG/3 ML AMP HHN ×4 (01:54→20:15)
[2018-04-12] MEDS: SOD CHLORIDE 0.9% 1,000 ML IV ×2 (03:18→23:01)
[2018-04-12] MEDS: morphine 2 MG INJ IV (03:25)
[2018-04-12] MEDS: TRIAMCINOLONE ACET 0.1% ORAB 5 GM MM ×3 (07:30→18:12)
[2018-04-12] MEDS: POLYETHYLENE GLYCOL 17 GM PACKET PO (09:00)
[2018-04-12] MEDS: FAMOTIDINE 20 MG TAB PO (09:40)
[2018-04-12] MEDS: DOCUSATE SODIUM 100 MG CAP PO (09:40)
[2018-04-12] MEDS: LACTOBACILLUS RHAMNOSUS CAP PO ×3 (09:40→18:24)
[2018-04-12 09:57] LABS: ALBUMIN 2.3 g/dl (3.3-4.9); ANION GAP 15 (8-16); BLOOD UREA NITROGEN 72 mg/dl (7-20); CALCIUM 7.9 mg/dl (8.4-10.2); CARBON DIOXIDE 15 mmol/L (21-31); CHLORIDE 103 mmol/L (97-110); GLUCOSE 120 mg/dl (70-220); PHOSPHORUS 4.9 mg/dl (2.5-4.9); POTASSIUM 5.6 mmol/L (3.5-5.1); SODIUM 127 mmol/L (135-144)
[2018-04-12 10:14] LABS: CREATININE 3.79 mg/dl (0.44-1.00)
[2018-04-12] MEDS ORDERED: DEXTROSE 50% 50 ML SYRINGE IV (11:00)
[2018-04-12] MEDS: NA POLYST SULFON 15 GM/60 ML BTL PO (11:19)
[2018-04-12] MEDS: MULTIVITAMINS THERAPEUTIC TAB PO (11:20)
[2018-04-12] MEDS: ONDANSETRON 4 MG INJ IV ×2 (11:20→21:39)
[2018-04-12] MEDS: ACETAMINOPHEN 325 MG TAB PO (11:20)
[2018-04-12] MEDS: INSULIN REGULAR, HUMAN 100 UNIT/1 ML 3ML VIAL IVP (11:30)
[2018-04-12] MEDS: CALCIUM CARBONATE 750 MG CHEW TAB PO ×2 (18:13→19:43)
[2018-04-13] MEDS: ALBUTEROL 0.083% (NEB) 2.5 MG/3 ML AMP HHN ×4 (02:03→20:08)
[2018-04-13] MEDS: PANTOPRAZOLE (EC) 40 MG TAB PO (02:59)
[2018-04-13] MEDS: LIDOCAINE/MYLANTA 40 ML BTL PO (05:09)
[2018-04-13 06:25] LABS: WHITE BLOOD COUNT 21.7 10^3/ul (4.8-10.8)
[2018-04-13 06:25] LABS: ABNORMAL IP MESSAGE 1; HEMATOCRIT 48.2 % (37.0-47.0); HEMOGLOBIN 16.2 g/dl (12.0-16.0); MEAN CORPUSCULAR HEMOGLOBIN 30.5 pg (29.0-33.0); MEAN CORPUSCULAR HGB CONC 33.6 g/dl (32.0-37.0); MEAN CORPUSCULAR VOLUME 90.6 fl (82.0-101.0); MEAN PLATELET VOLUME 11.7 fl (7.4-10.4); NUCLEATED RED BLOOD CELLS% 0.5 /100WBC (0.0-0.0); PLATELET COUNT 98 10^3/UL (140-415); RED BLOOD COUNT 5.32 10^6/ul (4.20-5.40); RED CELL DISTRIBUTION WIDTH 19.6 % (11.5-14.5)
[2018-04-13 06:37] LABS: ADD MAN DIFF? YES; POSITIVE DIFF @See below
[2018-04-13] MEDS: DOCUSATE SODIUM 100 MG CAP PO ×2 (07:01→08:13)
[2018-04-13 07:18] LABS: ALBUMIN 2.5 g/dl (3.3-4.9); ANION GAP 17 (8-16); BLOOD UREA NITROGEN 80 mg/dl (7-20); CALCIUM 8.3 mg/dl (8.4-10.2); CARBON DIOXIDE 16 mmol/L (21-31); CHLORIDE 99 mmol/L (97-110); GLUCOSE 95 mg/dl (70-220); PHOSPHORUS 5.8 mg/dl (2.5-4.9); POTASSIUM 5.7 mmol/L (3.5-5.1); SODIUM 126 mmol/L (135-144)
[2018-04-13 07:26] LABS: CREATININE 4.26 mg/dl (0.44-1.00)
[2018-04-13] MEDS: TRIAMCINOLONE ACET 0.1% ORAB 5 GM MM ×3 (07:30→17:30)
[2018-04-13] MEDS: NA POLYST SULFON 15 GM/60 ML BTL PO (08:12)
[2018-04-13] MEDS: LACTOBACILLUS RHAMNOSUS CAP PO ×3 (08:13→17:47)
[2018-04-13] MEDS: FAMOTIDINE 20 MG TAB PO (08:13)
[2018-04-13] MEDS: MULTIVITAMINS THERAPEUTIC TAB PO (08:13)
[2018-04-13] MEDS: POLYETHYLENE GLYCOL 17 GM PACKET PO (08:21)
[2018-04-13] MEDS: ONDANSETRON 4 MG INJ IV (08:25)
[2018-04-13] MEDS: FUROSEMIDE 40 MG INJ IV (08:30)
[2018-04-13 08:56] LABS: HAAIG REFLEX REFLEX FILED
[2018-04-13 10:09] LABS: ANISOCYTOSIS 1+ (0-0); BAND NEUTROPHILS #M 5.2 10^3/ul (0.0-0.6); BAND NEUTROPHILS % (M) 24 % (0-4); ERYTHROBLAST% (NRBC) (M) 1 % (0-0); LYMPHOCYTES #M 1.3 10^3/ul (0.8-2.9); LYMPHOCYTES % (M) 6 % (15-51); METAMYELOCYTES #M 0.8 10^3/ul (0.0-0.0); METAMYELOCYTES %M 4 % (0-0); MONOCYTE #M 0.4 10^3/ul (0.3-0.9); MONOCYTES % (M) 2 % (0-11); MYELOCYTES #M 0.4 10^3/ul (0.0-0.0); MYELOCYTES % (M) 2 % (0-0); PLATELET ESTIMATE DECREASED; POIKILOCYTOSIS 3+ (0-0); SEG NEUT #M 14.6 10^3/ul (1.6-7.5); SEGMENTED NEUTROPHILS (M) % 62 % (39-77); SMUDGE%M 20 % (0-0)
[2018-04-13 10:12] LABS: HEPATITIS B SURFACE ANTIGEN NEGATIVE (NEGATIVE)
[2018-04-13 10:30] LABS: HEPATITIS B CORE ANTIBODY NEGATIVE (NEGATIVE); HEPATITIS C VIRAL ANTIBODY NEGATIVE (NEGATIVE)
[2018-04-13 11:22] LABS: COMPLEMENT C4 9 mg/dl (14-44)
[2018-04-13 11:23] LABS: COMPLEMENT C3 < 40 mg/dl (88-165)
[2018-04-13] MEDS: traMADol 50 MG TAB PO (14:15)
[2018-04-13] MEDS: SOD CHLORIDE 0.9% 0 ML (15:37)
[2018-04-13] MEDS: HEPARIN 1000 UNITS/ML 10 ML INJ (15:37)
[2018-04-13] MEDS: ALBUMIN HUMAN 25% 100 ML IV ×2 (20:48→22:03)
[2018-04-13] MEDS: HEPARIN 1000 UNITS/ML 10 ML INJ CATHETER (23:20)
[2018-04-14] MEDS: ALBUTEROL 0.083% (NEB) 2.5 MG/3 ML AMP HHN ×4 (02:04→20:35)
[2018-04-14 06:29] LABS: ABNORMAL IP MESSAGE 1; HEMATOCRIT 38.3 % (37.0-47.0); HEMOGLOBIN 12.9 g/dl (12.0-16.0); MEAN CORPUSCULAR HEMOGLOBIN 30.7 pg (29.0-33.0); MEAN CORPUSCULAR HGB CONC 33.7 g/dl (32.0-37.0); MEAN CORPUSCULAR VOLUME 91.2 fl (82.0-101.0); MEAN PLATELET VOLUME 11.7 fl (7.4-10.4); NUCLEATED RED BLOOD CELLS% 0.4 /100WBC (0.0-0.0); PLATELET COUNT 78 10^3/UL (140-415); RED CELL DISTRIBUTION WIDTH 19.2 % (11.5-14.5)
[2018-04-14 06:29] LABS: WHITE BLOOD COUNT 18.7 10^3/ul (4.8-10.8)
[2018-04-14 06:36] LABS: ADD MAN DIFF? YES; POSITIVE DIFF @See below
[2018-04-14 07:03] LABS: ALBUMIN 2.7 g/dl (3.3-4.9); ANION GAP 18 (8-16); BLOOD UREA NITROGEN 70 mg/dl (7-20); CARBON DIOXIDE 17 mmol/L (21-31); CHLORIDE 100 mmol/L (97-110); GLUCOSE 78 mg/dl (70-220); MAGNESIUM 2.1 mg/dl (1.7-2.5); PHOSPHORUS 5.7 mg/dl (2.5-4.9); POTASSIUM 5.2 mmol/L (3.5-5.1); SODIUM 130 mmol/L (135-144)
[2018-04-14 07:12] LABS: ANION GAP 18 (8-16); BLOOD UREA NITROGEN 70 mg/dl (7-20); CARBON DIOXIDE 18 mmol/L (21-31); CHLORIDE 100 mmol/L (97-110); CREATININE 4.61 mg/dl (0.44-1.00); GLUCOSE 74 mg/dl (70-220); PHOSPHORUS 5.6 mg/dl (2.5-4.9); POTASSIUM 5.4 mmol/L (3.5-5.1); SODIUM 131 mmol/L (135-144)
[2018-04-14 07:19] LABS: CREATININE 4.45 mg/dl (0.44-1.00)
[2018-04-14] MEDS: TRIAMCINOLONE ACET 0.1% ORAB 5 GM MM ×3 (07:30→17:18)
[2018-04-14] MEDS: LACTOBACILLUS RHAMNOSUS CAP PO ×3 (07:39→17:31)
[2018-04-14] MEDS: DOCUSATE SODIUM 100 MG CAP PO (08:30)
[2018-04-14] MEDS: MULTIVITAMINS THERAPEUTIC TAB PO (08:31)
[2018-04-14] MEDS: POLYETHYLENE GLYCOL 17 GM PACKET PO (08:31)
[2018-04-14] MEDS: FAMOTIDINE 20 MG TAB PO (08:31)
[2018-04-14] MEDS: ONDANSETRON 4 MG INJ IV (08:32)
[2018-04-14 09:09] LABS: ANISOCYTOSIS 1+ (0-0); BAND NEUTROPHILS % (M) 11 % (0-4); LYMPHOCYTES #M 1.1 10^3/ul (0.8-2.9); LYMPHOCYTES % (M) 6 % (15-51); MICROCYTOSIS 1+ (0-0); MONOCYTE #M 0.3 10^3/ul (0.3-0.9); MONOCYTES % (M) 2 % (0-11); PLATELET ESTIMATE DECREASED; POIKILOCYTOSIS 3+ (0-0); POLYCHROMASIA 3+ (0-0); SEG NEUT #M 15.5 10^3/ul (1.6-7.5); SEGMENTED NEUTROPHILS (M) % 81 % (39-77); SMUDGE%M 5 % (0-0)
[2018-04-14 11:18] LABS: ADD UMIC YES; UR ASCORBIC ACID NEGATIVE (NEGATIVE); UR BACTERIA FEW /HPF (NONE SEEN); UR BILIRUBIN (Dip) NEGATIVE (NEGATIVE); UR BLOOD (Dip) 3+ mg/dL (NEGATIVE); UR BUDDING YEAST MANY /HPF (NONE SEEN); UR CLARITY CLOUDY (CLEAR); UR COLOR AMBER (YELLOW); UR GLUCOSE (Dip) NEGATIVE (NEGATIVE); UR HYALINE CAST FEW /HPF (NONE SEEN); UR KETONES (Dip) NEGATIVE (NEGATIVE); UR LEUKOCYTE ESTERASE (Dip) 3+ Leu/ul (NEGATIVE); UR MUCUS FEW /HPF (NONE SEEN); UR NITRITE (Dip) NEGATIVE (NEGATIVE); UR NONSQUAMOUS EPITHELIAL CELL 5 /HPF (NONE SEEN); UR RBC > 182 /HPF (0-5); UR SPECIFIC GRAVITY (Dip) 1.019 (1.003-1.030); UR TOTAL PROTEIN (Dip) 3+ mg/dl (NEGATIVE); UR UROBILINOGEN (Dip) NEGATIVE (NEGATIVE); UR WBC > 182 /HPF (0-5)
[2018-04-14 12:12] LABS: SODIUM,URINE RANDOM 37 mmol/L (30-90)
[2018-04-14 12:16] LABS: CREATININE,URINE RANDOM 118.75 mg/dl (20-320)
[2018-04-14 12:53] LABS: OSMOLALITY,URINE 304 mOsm/kg (250-1200)
[2018-04-14] MEDS: LORAZEPAM 2 MG INJ IV (13:25)
[2018-04-14] MEDS: ALBUMIN HUMAN 25% 100 ML IV (14:14)
[2018-04-14] MEDS: HEPARIN 1000 UNITS/ML 10 ML INJ CATHETER (15:50)
[2018-04-15] MEDS: ALBUTEROL 0.083% (NEB) 2.5 MG/3 ML AMP HHN ×4 (01:50→20:03)
[2018-04-15] MEDS: TRIAMCINOLONE ACET 0.1% ORAB 5 GM MM ×3 (07:31→17:30)
[2018-04-15] MEDS: DOCUSATE SODIUM 100 MG CAP PO (08:32)
[2018-04-15] MEDS: LACTOBACILLUS RHAMNOSUS CAP PO ×3 (08:32→17:55)
[2018-04-15] MEDS: FAMOTIDINE 20 MG TAB PO (08:32)
[2018-04-15] MEDS: MULTIVITAMINS THERAPEUTIC TAB PO (08:32)
[2018-04-15] MEDS: POLYETHYLENE GLYCOL 17 GM PACKET PO (08:33)
[2018-04-15] MEDS: METHYLPRED. NA SUCC 500 MG in DEXTROSE 5% 50 ML IVPB (10:26)
[2018-04-15] MEDS: LIDOCAINE 2% VISC 15 ML CUP PO ×3 (14:22→22:17)
[2018-04-15] MEDS: NYSTATIN SUSP 5 ML CUP PO ×3 (14:22→22:17)
[2018-04-15 14:30] LABS: ADD MAN DIFF? NO
[2018-04-15 14:33] LABS: ABNORMAL IP MESSAGE 1; BASOPHIL # 0.1 10^3/ul (0.0-0.1); BASOPHILS % 0.4 % (0.0-2.0); HEMATOCRIT 42.1 % (37.0-47.0); HEMOGLOBIN 14.4 g/dl (12.0-16.0); LYMPHOCYTES # 0.4 10^3/ul (0.8-2.9); LYMPHOCYTES % 3.6 % (15.0-51.0); MEAN CORPUSCULAR HEMOGLOBIN 30.8 pg (29.0-33.0); MEAN CORPUSCULAR HGB CONC 34.2 g/dl (32.0-37.0); MEAN PLATELET VOLUME 10.1 fl (7.4-10.4); MONOCYTE # 0.3 10^3/ul (0.3-0.9); MONOCYTES % 2.4 % (0.0-11.0); NEUTROPHIL # 10.7 10^3/ul (1.6-7.5); NUCLEATED RED BLOOD CELLS # 0.1 10^3/ul (0.0-0.0); NUCLEATED RED BLOOD CELLS% 0.6 /100WBC (0.0-0.0); PLATELET COUNT 79 10^3/UL (140-415); RED BLOOD COUNT 4.68 10^6/ul (4.20-5.40); RED CELL DISTRIBUTION WIDTH 19.3 % (11.5-14.5)
[2018-04-15 14:34] LABS: POSITIVE DIFF @See below
[2018-04-15 14:51] LABS: ALBUMIN 2.7 g/dl (3.3-4.9); ANION GAP 14 (8-16); BLOOD UREA NITROGEN 59 mg/dl (7-20); CALCIUM 7.9 mg/dl (8.4-10.2); CARBON DIOXIDE 21 mmol/L (21-31); CHLORIDE 98 mmol/L (97-110); GLUCOSE 139 mg/dl (70-220); MAGNESIUM 1.9 mg/dl (1.7-2.5); PHOSPHORUS 5.4 mg/dl (2.5-4.9); POTASSIUM 4.7 mmol/L (3.5-5.1); SODIUM 128 mmol/L (135-144)
[2018-04-15 15:06] LABS: CREATININE 4.24 mg/dl (0.44-1.00)
[2018-04-15 16:27] LABS: CREATININE, RANDOM URINE 136 mg/dL (20-320); MICROALBUMIN 182.6 mg/dL; MICROALBUMIN/CREATININE RATIO 1343 (<30)
[2018-04-15] MEDS: LORAZEPAM 2 MG INJ IV (17:45)
[2018-04-15] MEDS ORDERED: ZIPRASIDONE 20 MG CAP PO (19:30)
[2018-04-16] MEDS: ALBUTEROL 0.083% (NEB) 2.5 MG/3 ML AMP HHN ×4 (02:13→20:39)
[2018-04-16 06:47] LABS: ADD MAN DIFF? NO
[2018-04-16 06:56] LABS: ABNORMAL IP MESSAGE 1; BASOPHILS % 0.3 % (0.0-2.0); HEMATOCRIT 42.6 % (37.0-47.0); HEMOGLOBIN 14.4 g/dl (12.0-16.0); LYMPHOCYTES # 0.7 10^3/ul (0.8-2.9); LYMPHOCYTES % 4.7 % (15.0-51.0); MEAN CORPUSCULAR HEMOGLOBIN 30.6 pg (29.0-33.0); MEAN CORPUSCULAR HGB CONC 33.8 g/dl (32.0-37.0); MEAN CORPUSCULAR VOLUME 90.4 fl (82.0-101.0); MEAN PLATELET VOLUME 11.4 fl (7.4-10.4); MONOCYTE # 0.3 10^3/ul (0.3-0.9); NEUTROPHIL # 12.4 10^3/ul (1.6-7.5); NEUTROPHILS % 89.7 % (39.0-77.0); NUCLEATED RED BLOOD CELLS # 0.1 10^3/ul (0.0-0.0); NUCLEATED RED BLOOD CELLS% 0.7 /100WBC (0.0-0.0); PLATELET COUNT 62 10^3/UL (140-415); RED BLOOD COUNT 4.71 10^6/ul (4.20-5.40); RED CELL DISTRIBUTION WIDTH 19.8 % (11.5-14.5)
[2018-04-16 06:56] LABS: WHITE BLOOD COUNT 13.8 10^3/ul (4.8-10.8)
[2018-04-16 06:59] LABS: POSITIVE DIFF @See below
[2018-04-16 07:24] LABS: ANION GAP 16 (8-16); BLOOD UREA NITROGEN 49 mg/dl (7-20); CALCIUM 8.3 mg/dl (8.4-10.2); CARBON DIOXIDE 18 mmol/L (21-31); CHLORIDE 100 mmol/L (97-110); CREATININE 4.24 mg/dl (0.44-1.00); GLUCOSE 143 mg/dl (70-220); PHOSPHORUS 5.5 mg/dl (2.5-4.9); POTASSIUM 4.9 mmol/L (3.5-5.1); SODIUM 129 mmol/L (135-144)
[2018-04-16] MEDS: TRIAMCINOLONE ACET 0.1% ORAB 5 GM MM ×3 (07:30→17:16)
[2018-04-16] MEDS: MULTIVITAMINS THERAPEUTIC TAB PO (08:46)
[2018-04-16] MEDS: DOCUSATE SODIUM 100 MG CAP PO (08:46)
[2018-04-16] MEDS: LACTOBACILLUS RHAMNOSUS CAP PO ×3 (08:46→17:16)
[2018-04-16] MEDS: FAMOTIDINE 20 MG TAB PO (08:46)
[2018-04-16] MEDS: LIDOCAINE 2% VISC 15 ML CUP PO ×4 (08:47→21:09)
[2018-04-16] MEDS: POLYETHYLENE GLYCOL 17 GM PACKET PO (08:47)
[2018-04-16] MEDS: NYSTATIN SUSP 5 ML CUP PO ×4 (08:47→21:09)
[2018-04-16] MEDS: METHYLPRED. NA SUCC 500 MG in DEXTROSE 5% 50 ML IVPB (08:50)
[2018-04-16 14:31] LABS: ANTI-DNA (DOUBLE STRANDED) 145 U/mL (< 301)
[2018-04-16] MEDS: FLUCONAZOLE 100 MG TAB PO (14:34)
[2018-04-16] MEDS: LIDOCAINE 1% (MPF) 5 ML VIAL (19:02)
[2018-04-16] MEDS: LORAZEPAM 2 MG INJ IV (19:40)
[2018-04-16] MEDS: GUAIFENESIN/DM 5ML CUP PO (21:51)
[2018-04-17] MEDS: MIDODRINE 5 MG TAB PO ×4 (01:36→17:31)
[2018-04-17] MEDS: SOD CHLORIDE 0.9% 100 ML IV (01:39)
[2018-04-17] MEDS: ALBUTEROL 0.083% (NEB) 2.5 MG/3 ML AMP HHN ×4 (02:27→20:20)
[2018-04-17 06:09] LABS: ADD MAN DIFF? NO
[2018-04-17 06:20] LABS: ABNORMAL IP MESSAGE 1; BASOPHILS % 0.2 % (0.0-2.0); HEMATOCRIT 43.1 % (37.0-47.0); HEMOGLOBIN 14.4 g/dl (12.0-16.0); LYMPHOCYTES # 0.8 10^3/ul (0.8-2.9); LYMPHOCYTES % 5.1 % (15.0-51.0); MEAN CORPUSCULAR HEMOGLOBIN 29.8 pg (29.0-33.0); MEAN CORPUSCULAR HGB CONC 33.4 g/dl (32.0-37.0); MEAN CORPUSCULAR VOLUME 89.2 fl (82.0-101.0); MEAN PLATELET VOLUME 11.2 fl (7.4-10.4); MONOCYTE # 0.4 10^3/ul (0.3-0.9); MONOCYTES % 2.6 % (0.0-11.0); NEUTROPHIL # 13.1 10^3/ul (1.6-7.5); NEUTROPHILS % 88.9 % (39.0-77.0); NUCLEATED RED BLOOD CELLS # 0.1 10^3/ul (0.0-0.0); NUCLEATED RED BLOOD CELLS% 0.9 /100WBC (0.0-0.0); PLATELET COUNT 66 10^3/UL (140-415); RED BLOOD COUNT 4.83 10^6/ul (4.20-5.40)
[2018-04-17 06:20] LABS: WHITE BLOOD COUNT 14.7 10^3/ul (4.8-10.8)
[2018-04-17 06:26] LABS: POSITIVE DIFF @See below
[2018-04-17 07:06] LABS: ANION GAP 17 (8-16); BLOOD UREA NITROGEN 56 mg/dl (7-20); CARBON DIOXIDE 19 mmol/L (21-31); CHLORIDE 99 mmol/L (97-110); GLUCOSE 131 mg/dl (70-220); PHOSPHORUS 6.1 mg/dl (2.5-4.9); POTASSIUM 4.7 mmol/L (3.5-5.1); SODIUM 130 mmol/L (135-144)
[2018-04-17 07:13] LABS: CREATININE 4.74 mg/dl (0.44-1.00)
[2018-04-17] MEDS: TRIAMCINOLONE ACET 0.1% ORAB 5 GM MM ×3 (07:30→17:31)
[2018-04-17] MEDS: LACTOBACILLUS RHAMNOSUS CAP PO ×3 (08:39→17:31)
[2018-04-17] MEDS: DOCUSATE SODIUM 100 MG CAP PO (08:39)
[2018-04-17] MEDS: FAMOTIDINE 20 MG TAB PO (08:40)
[2018-04-17] MEDS: FLUCONAZOLE 100 MG TAB PO (08:40)
[2018-04-17] MEDS: POLYETHYLENE GLYCOL 17 GM PACKET PO (08:40)
[2018-04-17] MEDS: MULTIVITAMINS THERAPEUTIC TAB PO (08:41)
[2018-04-17] MEDS: LIDOCAINE 2% VISC 15 ML CUP PO ×4 (08:41→20:14)
[2018-04-17] MEDS: NYSTATIN SUSP 5 ML CUP PO ×4 (08:41→20:14)
[2018-04-17] MEDS: METHYLPRED. NA SUCC 500 MG in DEXTROSE 5% 50 ML IVPB (09:57)
[2018-04-17] MEDS: LORAZEPAM 2 MG INJ IV (10:53)
[2018-04-17] MEDS: HEPARIN 1000 UNITS/ML 10 ML INJ CATHETER (14:32)
[2018-04-17] MEDS: LIDOCAINE 1% (MPF) 5 ML VIAL (16:26)
[2018-04-17 17:13] LABS: FLD MN% 82.8 %; FLD PMN% 17.2 %; FLD RBC 1000 /uL; FLD WBC 105 /cmm
[2018-04-17 17:31] LABS: FLD TYPE PARACENTHESIS
[2018-04-17 17:32] LABS: FLD CLARITY HAZY; FLD COLOR YELLOW
[2018-04-17 17:36] LABS: FLUID AMYLASE < 30 U/L; FLUID TYPE ASCITES FLUID
[2018-04-17 17:37] LABS: FLUID GLUCOSE 115 mg/dl; FLUID LD 189 U/L; FLUID TOTAL PROTEIN 2.6 g/dl; FLUID TYPE ASCITES FLUID; FLUID TYPE ASCITIES FLUID
[2018-04-18] MEDS: ALBUTEROL 0.083% (NEB) 2.5 MG/3 ML AMP HHN ×4 (02:00→21:08)
[2018-04-18 06:50] LABS: ADD MAN DIFF? NO
[2018-04-18 07:03] LABS: WHITE BLOOD COUNT 12.7 10^3/ul (4.8-10.8)
[2018-04-18 07:03] LABS: ABNORMAL IP MESSAGE 1; BASOPHILS % 0.2 % (0.0-2.0); HEMATOCRIT 43.9 % (37.0-47.0); HEMOGLOBIN 14.5 g/dl (12.0-16.0); LYMPHOCYTES # 0.7 10^3/ul (0.8-2.9); LYMPHOCYTES % 5.1 % (15.0-51.0); MEAN CORPUSCULAR HEMOGLOBIN 29.8 pg (29.0-33.0); MEAN CORPUSCULAR VOLUME 90.1 fl (82.0-101.0); MEAN PLATELET VOLUME 10.8 fl (7.4-10.4); MONOCYTE # 0.4 10^3/ul (0.3-0.9); MONOCYTES % 2.8 % (0.0-11.0); NEUTROPHIL # 11.2 10^3/ul (1.6-7.5); NEUTROPHILS % 88.7 % (39.0-77.0); NUCLEATED RED BLOOD CELLS # 0.2 10^3/ul (0.0-0.0); NUCLEATED RED BLOOD CELLS% 1.2 /100WBC (0.0-0.0); PLATELET COUNT 82 10^3/UL (140-415); RED BLOOD COUNT 4.87 10^6/ul (4.20-5.40); RED CELL DISTRIBUTION WIDTH 20.7 % (11.5-14.5)
[2018-04-18 07:14] LABS: POSITIVE DIFF @See below
[2018-04-18 07:31] LABS: ANION GAP 15 (8-16); BLOOD UREA NITROGEN 48 mg/dl (7-20); CALCIUM 7.8 mg/dl (8.4-10.2); CARBON DIOXIDE 20 mmol/L (21-31); CHLORIDE 104 mmol/L (97-110); CREATININE 4.72 mg/dl (0.44-1.00); GLUCOSE 112 mg/dl (70-220); MAGNESIUM 2.1 mg/dl (1.7-2.5); PHOSPHORUS 5.6 mg/dl (2.5-4.9); POTASSIUM 4.6 mmol/L (3.5-5.1); SODIUM 134 mmol/L (135-144)
[2018-04-18] MEDS: TRIAMCINOLONE ACET 0.1% ORAB 5 GM MM ×3 (08:12→17:20)
[2018-04-18] MEDS: MULTIVITAMINS THERAPEUTIC TAB PO (08:13)
[2018-04-18] MEDS: DOCUSATE SODIUM 100 MG CAP PO (08:13)
[2018-04-18] MEDS: LACTOBACILLUS RHAMNOSUS CAP PO ×3 (08:13→17:20)
[2018-04-18] MEDS: FLUCONAZOLE 100 MG TAB PO (08:13)
[2018-04-18] MEDS: FAMOTIDINE 20 MG TAB PO (08:13)
[2018-04-18] MEDS: NYSTATIN SUSP 5 ML CUP PO ×4 (08:14→20:25)
[2018-04-18] MEDS: POLYETHYLENE GLYCOL 17 GM PACKET PO (08:14)
[2018-04-18] MEDS: LIDOCAINE 2% VISC 15 ML CUP PO ×4 (08:14→20:24)
[2018-04-18] MEDS: MIDODRINE 5 MG TAB PO ×3 (08:31→17:22)
[2018-04-19] MEDS: ONDANSETRON 4 MG INJ IV (01:00)
[2018-04-19] MEDS: ALBUTEROL 0.083% (NEB) 2.5 MG/3 ML AMP HHN ×4 (02:00→20:00)
[2018-04-19] MEDS: LACTOBACILLUS RHAMNOSUS CAP PO ×3 (08:02→18:01)
[2018-04-19] MEDS: TRIAMCINOLONE ACET 0.1% ORAB 5 GM MM ×3 (08:04→18:01)
[2018-04-19] MEDS: NYSTATIN SUSP 5 ML CUP PO ×4 (08:04→20:32)
[2018-04-19] MEDS: LIDOCAINE 2% VISC 15 ML CUP PO ×4 (08:04→20:32)
[2018-04-19] MEDS: MULTIVITAMINS THERAPEUTIC TAB PO (08:14)
[2018-04-19] MEDS: FAMOTIDINE 20 MG TAB PO (08:14)
[2018-04-19] MEDS: DOCUSATE SODIUM 100 MG CAP PO (08:14)
[2018-04-19] MEDS: POLYETHYLENE GLYCOL 17 GM PACKET PO (08:14)
[2018-04-19] MEDS: DIPHENHYDRAMINE 25 MG CAP PO (08:15)
[2018-04-19] MEDS: FLUCONAZOLE 100 MG TAB PO (08:15)
[2018-04-19] MEDS: ACETAMINOPHEN 325 MG TAB PO (08:16)
[2018-04-19] MEDS: MIDODRINE 5 MG TAB PO ×3 (08:27→18:01)
[2018-04-19 11:22] LABS: ADD MAN DIFF? NO
[2018-04-19 11:26] LABS: WHITE BLOOD COUNT 15.1 10^3/ul (4.8-10.8)
[2018-04-19 11:26] LABS: ABNORMAL IP MESSAGE 1; BASOPHILS % 0.2 % (0.0-2.0); EOSINOPHILS % 0.1 % (0.0-7.0); HEMATOCRIT 41.4 % (37.0-47.0); HEMOGLOBIN 13.5 g/dl (12.0-16.0); LYMPHOCYTES # 0.8 10^3/ul (0.8-2.9); LYMPHOCYTES % 5.4 % (15.0-51.0); MEAN CORPUSCULAR HEMOGLOBIN 30.1 pg (29.0-33.0); MEAN CORPUSCULAR HGB CONC 32.6 g/dl (32.0-37.0); MEAN CORPUSCULAR VOLUME 92.2 fl (82.0-101.0); MEAN PLATELET VOLUME 10.5 fl (7.4-10.4); MONOCYTE # 0.5 10^3/ul (0.3-0.9); MONOCYTES % 3.2 % (0.0-11.0); NEUTROPHIL # 13.4 10^3/ul (1.6-7.5); NUCLEATED RED BLOOD CELLS # 0.2 10^3/ul (0.0-0.0); NUCLEATED RED BLOOD CELLS% 1.6 /100WBC (0.0-0.0); PLATELET COUNT 76 10^3/UL (140-415); RED BLOOD COUNT 4.49 10^6/ul (4.20-5.40)
[2018-04-19 11:29] LABS: POSITIVE DIFF @See below
[2018-04-19 11:44] LABS: ANION GAP 12 (8-16); BLOOD UREA NITROGEN 47 mg/dl (7-20); CALCIUM 7.6 mg/dl (8.4-10.2); CARBON DIOXIDE 26 mmol/L (21-31); CHLORIDE 101 mmol/L (97-110); GLUCOSE 106 mg/dl (70-220); MAGNESIUM 1.9 mg/dl (1.7-2.5); PHOSPHORUS 4.6 mg/dl (2.5-4.9); POTASSIUM 4.3 mmol/L (3.5-5.1); SODIUM 135 mmol/L (135-144)
[2018-04-19] MEDS: HEPARIN 1000 UNITS/ML 10 ML INJ CATHETER (14:15)
[2018-04-19] MEDS: ZOLPIDEM 5 MG TAB PO (22:10)
[2018-04-20] MEDS: ALBUTEROL 0.083% (NEB) 2.5 MG/3 ML AMP HHN ×4 (02:00→20:00)
[2018-04-20 07:12] LABS: WHITE BLOOD COUNT 13.4 10^3/ul (4.8-10.8)
[2018-04-20 07:12] LABS: ABNORMAL IP MESSAGE 1; HEMATOCRIT 46.2 % (37.0-47.0); HEMOGLOBIN 15.4 g/dl (12.0-16.0); MEAN CORPUSCULAR HEMOGLOBIN 31.1 pg (29.0-33.0); MEAN CORPUSCULAR HGB CONC 33.3 g/dl (32.0-37.0); MEAN CORPUSCULAR VOLUME 93.3 fl (82.0-101.0); NUCLEATED RED BLOOD CELLS% 1.2 /100WBC (0.0-0.0); RED BLOOD COUNT 4.95 10^6/ul (4.20-5.40); RED CELL DISTRIBUTION WIDTH 20.5 % (11.5-14.5)
[2018-04-20 07:13] LABS: ADD MAN DIFF? YES; PLATELET COUNT 52 10^3/UL (140-415); POSITIVE DIFF @See below
[2018-04-20 07:22] LABS: ANION GAP 12 (8-16); BLOOD UREA NITROGEN 40 mg/dl (7-20); CALCIUM 7.5 mg/dl (8.4-10.2); CARBON DIOXIDE 25 mmol/L (21-31); CHLORIDE 102 mmol/L (97-110); CREATININE 4.36 mg/dl (0.44-1.00); GLUCOSE 95 mg/dl (70-220); MAGNESIUM 2.1 mg/dl (1.7-2.5); PHOSPHORUS 4.6 mg/dl (2.5-4.9); POTASSIUM 4.5 mmol/L (3.5-5.1); SODIUM 134 mmol/L (135-144)
[2018-04-20] MEDS: LIDOCAINE 2% VISC 15 ML CUP PO ×4 (08:25→20:35)
[2018-04-20] MEDS: NYSTATIN SUSP 5 ML CUP PO ×4 (08:25→20:35)
[2018-04-20] MEDS: LACTOBACILLUS RHAMNOSUS CAP PO ×3 (08:25→16:47)
[2018-04-20] MEDS: FLUCONAZOLE 100 MG TAB PO (08:25)
[2018-04-20] MEDS: MULTIVITAMINS THERAPEUTIC TAB PO (08:26)
[2018-04-20] MEDS: POLYETHYLENE GLYCOL 17 GM PACKET PO (08:26)
[2018-04-20] MEDS: DOCUSATE SODIUM 100 MG CAP PO (08:26)
[2018-04-20] MEDS: FAMOTIDINE 20 MG TAB PO (08:26)
[2018-04-20] MEDS: TRIAMCINOLONE ACET 0.1% ORAB 5 GM MM ×3 (08:27→16:48)
[2018-04-20] MEDS: MIDODRINE 5 MG TAB PO ×3 (08:27→17:00)
[2018-04-20 09:12] LABS: ANISOCYTOSIS 1+ (0-0); BAND NEUTROPHILS #M 0.8 10^3/ul (0.0-0.6); BAND NEUTROPHILS % (M) 6 % (0-4); BURR CELLS 1+ (0-0); ERYTHROBLAST% (NRBC) (M) 2 % (0-0); METAMYELOCYTES #M 0.5 10^3/ul (0.0-0.0); METAMYELOCYTES %M 4 % (0-0); PLATELET ESTIMATE SIG DECREASED; POIKILOCYTOSIS 1+ (0-0); POLYCHROMASIA 1+ (0-0); SEG NEUT #M 12.2 10^3/ul (1.6-7.5); SEGMENTED NEUTROPHILS (M) % 90 % (39-77); SMUDGE%M 8 % (0-0)
[2018-04-20] MEDS: SALINE 0.65% 45 ML NAS SPRAY NASAL ×2 (16:47→20:35)
[2018-04-20] MEDS: HEPARIN 1000 UNITS/ML 10 ML INJ CATHETER (19:50)
[2018-04-20] MEDS: LORAZEPAM 2 MG INJ IV (23:43)
[2018-04-21] MEDS: ALBUTEROL 0.083% (NEB) 2.5 MG/3 ML AMP HHN ×4 (01:52→21:21)
[2018-04-21] MEDS: NYSTATIN SUSP 5 ML CUP PO ×4 (08:27→22:00)
[2018-04-21] MEDS: LIDOCAINE 2% VISC 15 ML CUP PO ×4 (08:27→22:00)
[2018-04-21] MEDS: traMADol 50 MG TAB PO (08:27)
[2018-04-21] MEDS: LACTOBACILLUS RHAMNOSUS CAP PO ×3 (08:27→18:07)
[2018-04-21] MEDS: FLUCONAZOLE 100 MG TAB PO (08:27)
[2018-04-21] MEDS: FAMOTIDINE 20 MG TAB PO (08:27)
[2018-04-21] MEDS: CEPASTAT LOZENGE MT (08:27)
[2018-04-21] MEDS: MULTIVITAMINS THERAPEUTIC TAB PO (08:27)
[2018-04-21] MEDS: MIDODRINE 5 MG TAB PO ×3 (08:28→18:09)
[2018-04-21] MEDS: TRIAMCINOLONE ACET 0.1% ORAB 5 GM MM ×3 (08:28→18:10)
[2018-04-21] MEDS: SALINE 0.65% 45 ML NAS SPRAY NASAL ×2 (08:28→22:00)
[2018-04-21] MEDS: POLYETHYLENE GLYCOL 17 GM PACKET PO (08:29)
[2018-04-21] MEDS: DOCUSATE SODIUM 100 MG CAP PO (08:29)
[2018-04-21 08:54] LABS: ANION GAP 11 (8-16); BLOOD UREA NITROGEN 30 mg/dl (7-20); CALCIUM 7.6 mg/dl (8.4-10.2); CARBON DIOXIDE 23 mmol/L (21-31); CHLORIDE 103 mmol/L (97-110); CREATININE 3.74 mg/dl (0.44-1.00); GLUCOSE 90 mg/dl (70-220); PHOSPHORUS 4.1 mg/dl (2.5-4.9); POTASSIUM 3.9 mmol/L (3.5-5.1); SODIUM 133 mmol/L (135-144)
[2018-04-21 21:25] LABS: HIV 1&2 ANTIBODY NEGATIVE (NEGATIVE)
[2018-04-22] MEDS: ALBUTEROL 0.083% (NEB) 2.5 MG/3 ML AMP HHN ×4 (01:45→19:28)
[2018-04-22 06:48] LABS: ADD MAN DIFF? NO
[2018-04-22 06:59] LABS: ABNORMAL IP MESSAGE 1; BASOPHILS % 0.2 % (0.0-2.0); EOSINOPHILS % 0.1 % (0.0-7.0); HEMATOCRIT 46.7 % (37.0-47.0); HEMOGLOBIN 14.9 g/dl (12.0-16.0); LYMPHOCYTES # 0.6 10^3/ul (0.8-2.9); LYMPHOCYTES % 5.9 % (15.0-51.0); MEAN CORPUSCULAR HEMOGLOBIN 30.2 pg (29.0-33.0); MEAN CORPUSCULAR HGB CONC 31.9 g/dl (32.0-37.0); MEAN CORPUSCULAR VOLUME 94.7 fl (82.0-101.0); MEAN PLATELET VOLUME 10.3 fl (7.4-10.4); MONOCYTE # 0.6 10^3/ul (0.3-0.9); MONOCYTES % 5.7 % (0.0-11.0); NEUTROPHIL # 8.9 10^3/ul (1.6-7.5); NEUTROPHILS % 86.6 % (39.0-77.0); NUCLEATED RED BLOOD CELLS% 0.4 /100WBC (0.0-0.0); PLATELET COUNT 56 10^3/UL (140-415); RED BLOOD COUNT 4.93 10^6/ul (4.20-5.40); RED CELL DISTRIBUTION WIDTH 19.9 % (11.5-14.5)
[2018-04-22 06:59] LABS: WHITE BLOOD COUNT 10.2 10^3/ul (4.8-10.8)
[2018-04-22 07:02] LABS: POSITIVE DIFF @See below
[2018-04-22 07:33] LABS: ALANINE AMINOTRANSFERASE 30 IU/L (13-69); ALBUMIN/GLOBULIN RATIO 0.86; ALKALINE PHOSPHATASE 222 IU/L (42-121); ANION GAP 11 (8-16); ASPARTATE AMINO TRANSFERASE 37 IU/L (15-46); BILIRUBIN,INDIRECT 0.7 mg/dl (0-1.1); BILIRUBIN,TOTAL 0.7 mg/dl (0.2-1.3); BLOOD UREA NITROGEN 39 mg/dl (7-20); CALCIUM 7.7 mg/dl (8.4-10.2); CARBON DIOXIDE 26 mmol/L (21-31); CHLORIDE 100 mmol/L (97-110); GLUCOSE 90 mg/dl (70-220); POTASSIUM 4.1 mmol/L (3.5-5.1); SODIUM 133 mmol/L (135-144); TOTAL PROTEIN 4.3 g/dl (6.1-8.1)
[2018-04-22] MEDS: TRIAMCINOLONE ACET 0.1% ORAB 5 GM MM ×3 (08:05→17:30)
[2018-04-22] MEDS: SALINE 0.65% 45 ML NAS SPRAY NASAL ×2 (09:01→22:08)
[2018-04-22] MEDS: LACTOBACILLUS RHAMNOSUS CAP PO ×3 (09:01→17:39)
[2018-04-22] MEDS: FAMOTIDINE 20 MG TAB PO (09:04)
[2018-04-22] MEDS: DOCUSATE SODIUM 100 MG CAP PO (09:04)
[2018-04-22] MEDS: NYSTATIN SUSP 5 ML CUP PO ×4 (09:05→22:08)
[2018-04-22] MEDS: LIDOCAINE 2% VISC 15 ML CUP PO ×4 (09:05→22:08)
[2018-04-22] MEDS: FLUCONAZOLE 100 MG TAB PO (09:05)
[2018-04-22] MEDS: POLYETHYLENE GLYCOL 17 GM PACKET PO (09:05)
[2018-04-22] MEDS: MULTIVITAMINS THERAPEUTIC TAB PO (09:05)
[2018-04-22] MEDS: MIDODRINE 5 MG TAB PO ×3 (09:08→17:00)
[2018-04-22] MEDS: HEPARIN 1000 UNITS/ML 10 ML INJ CATHETER (14:05)
[2018-04-22 17:46] LABS: ADD UMIC YES; UR ASCORBIC ACID NEGATIVE (NEGATIVE); UR BACTERIA FEW /HPF (NONE SEEN); UR BILIRUBIN (Dip) NEGATIVE (NEGATIVE); UR BLOOD (Dip) 3+ mg/dL (NEGATIVE); UR BUDDING YEAST MANY /HPF (NONE SEEN); UR CLARITY CLOUDY (CLEAR); UR COLOR AMBER (YELLOW); UR GLUCOSE (Dip) NEGATIVE (NEGATIVE); UR KETONES (Dip) NEGATIVE (NEGATIVE); UR LEUKOCYTE ESTERASE (Dip) 2+ Leu/ul (NEGATIVE); UR NITRITE (Dip) NEGATIVE (NEGATIVE); UR RBC 50 /HPF (0-5); UR SPECIFIC GRAVITY (Dip) 1.021 (1.003-1.030); UR SQUAMOUS EPITHELIAL CELL FEW /HPF (FEW); UR TOTAL PROTEIN (Dip) 1+ mg/dl (NEGATIVE); UR UROBILINOGEN (Dip) NEGATIVE (NEGATIVE); UR WBC > 182 /HPF (0-5)
[2018-04-22] MEDS ORDERED: MIDAZOLAM 1 MG/ML 2 ML INJ (19:14)
[2018-04-22] MEDS ORDERED: EPHEDrine SULFATE 50 MG/5 ML SYG IV (19:30)
[2018-04-22] MEDS ORDERED: morphine (1 MG/ML) 10ML SYRINGE IV ×2 (19:30)
[2018-04-22] MEDS ORDERED: DIPHENHYDRAMINE 50 MG INJ IV (19:30)
[2018-04-22] MEDS ORDERED: ONDANSETRON 4 MG INJ IV (19:30)
[2018-04-22] MEDS ORDERED: FENTAnyl 50 MCG/ML VIAL IV (19:30)
[2018-04-22] MEDS ORDERED: PHENYLephrine (100 MCG/ML) 5ML SYG (19:31)
[2018-04-22] MEDS ORDERED: LIDOCAINE 2% (SDV) 5 ML INJ (20:14)
[2018-04-22] MEDS ORDERED: ROCURONIUM 50 MG INJ (20:14)
[2018-04-22] MEDS ORDERED: ETOMIDATE 20 MG INJ (20:14)
[2018-04-22] MEDS ORDERED: CEFAZOLIN 1 GM INJ (20:14)
[2018-04-22] MEDS ORDERED: PROPOFOL 100 ML (20:54)
[2018-04-22] MEDS: SUCRALFATE (100 MG/ML) 10ML CUP PO (21:00)
[2018-04-22] MEDS: PROPOFOL 100 ML IV (21:12)
[2018-04-22] MEDS: SOD CHLORIDE 0.9% 1,000 ML IV (21:34)
[2018-04-22 21:48] LABS: ADD MAN DIFF? NO
[2018-04-22 21:51] LABS: WHITE BLOOD COUNT 7.2 10^3/ul (4.8-10.8)
[2018-04-22 21:51] LABS: ABNORMAL IP MESSAGE 1; BASOPHILS % 0.1 % (0.0-2.0); EOSINOPHILS % 0.1 % (0.0-7.0); HEMATOCRIT 44.1 % (37.0-47.0); HEMOGLOBIN 14.5 g/dl (12.0-16.0); LYMPHOCYTES # 0.5 10^3/ul (0.8-2.9); LYMPHOCYTES % 6.9 % (15.0-51.0); MEAN CORPUSCULAR HEMOGLOBIN 30.5 pg (29.0-33.0); MEAN CORPUSCULAR HGB CONC 32.9 g/dl (32.0-37.0); MEAN CORPUSCULAR VOLUME 92.6 fl (82.0-101.0); MEAN PLATELET VOLUME 11.2 fl (7.4-10.4); MONOCYTE # 0.3 10^3/ul (0.3-0.9); MONOCYTES % 4.3 % (0.0-11.0); NEUTROPHIL # 6.3 10^3/ul (1.6-7.5); NEUTROPHILS % 87.1 % (39.0-77.0); NUCLEATED RED BLOOD CELLS% 0.3 /100WBC (0.0-0.0); PLATELET COUNT 63 10^3/UL (140-415); RED BLOOD COUNT 4.76 10^6/ul (4.20-5.40); RED CELL DISTRIBUTION WIDTH 19.9 % (11.5-14.5)
[2018-04-22 21:55] LABS: AADO2 Arterial 286.8 mmHg (7.0-24.0); Arterial Base Excess -0.3 mmol/L (-3.0-3); Arterial Blood Gas Oxygen Sat 97.9 mmHG (95.0-98.0); Arterial COHb 0.6 % (0.0-3.0); Arterial HCO3 22.5 mmol/L (22.0-26.0); Arterial MetHb 0.3 % (0.0-1.5); Arterial Total Hemglobin 14.8 g/dl (12.0-18.0); MODE VENT - AC; Site A-Line
[2018-04-22 22:04] LABS: POSITIVE DIFF @See below
[2018-04-22 22:08] LABS: ANION GAP 10 (8-16); BLOOD UREA NITROGEN 27 mg/dl (7-20); CALCIUM 7.1 mg/dl (8.4-10.2); CARBON DIOXIDE 23 mmol/L (21-31); CHLORIDE 103 mmol/L (97-110); CREATININE 2.97 mg/dl (0.44-1.00); GLUCOSE 97 mg/dl (70-220); POTASSIUM 4.3 mmol/L (3.5-5.1); SODIUM 132 mmol/L (135-144)
[2018-04-23] MEDS: ALBUTEROL HFA 8 GM INHALER INH ×4 (01:41→19:35)
[2018-04-23] MEDS: SOD CHLORIDE 0.9% 1,000 ML IV ×3 (03:14→16:41)
[2018-04-23 04:21] LABS: ADD MAN DIFF? NO
[2018-04-23 04:30] LABS: ABNORMAL IP MESSAGE 1; BASOPHILS % 0.2 % (0.0-2.0); EOSINOPHILS % 0.2 % (0.0-7.0); HEMATOCRIT 43.9 % (37.0-47.0); HEMOGLOBIN 14.2 g/dl (12.0-16.0); LYMPHOCYTES # 0.8 10^3/ul (0.8-2.9); LYMPHOCYTES % 8.2 % (15.0-51.0); MEAN CORPUSCULAR HEMOGLOBIN 30.2 pg (29.0-33.0); MEAN CORPUSCULAR HGB CONC 32.3 g/dl (32.0-37.0); MEAN CORPUSCULAR VOLUME 93.4 fl (82.0-101.0); MEAN PLATELET VOLUME 10.5 fl (7.4-10.4); MONOCYTE # 0.6 10^3/ul (0.3-0.9); MONOCYTES % 5.6 % (0.0-11.0); NEUTROPHIL # 8.7 10^3/ul (1.6-7.5); NEUTROPHILS % 84.6 % (39.0-77.0); NUCLEATED RED BLOOD CELLS% 0.3 /100WBC (0.0-0.0); PLATELET COUNT 54 10^3/UL (140-415); RED CELL DISTRIBUTION WIDTH 19.7 % (11.5-14.5)
[2018-04-23 04:30] LABS: WHITE BLOOD COUNT 10.3 10^3/ul (4.8-10.8)
[2018-04-23 04:37] LABS: POSITIVE DIFF @See below
[2018-04-23 04:45] LABS: INR 1.79; PROTIME 21.2 Sec (11.9-14.9); PT RATIO 1.7
[2018-04-23 04:50] LABS: ALANINE AMINOTRANSFERASE 35 IU/L (13-69); ALBUMIN 1.6 g/dl (3.3-4.9); ALBUMIN/GLOBULIN RATIO 0.72; ALKALINE PHOSPHATASE 160 IU/L (42-121); ANION GAP 11 (8-16); ASPARTATE AMINO TRANSFERASE 33 IU/L (15-46); BILIRUBIN,INDIRECT 0.5 mg/dl (0-1.1); BILIRUBIN,TOTAL 0.5 mg/dl (0.2-1.3); BLOOD UREA NITROGEN 28 mg/dl (7-20); CARBON DIOXIDE 23 mmol/L (21-31); CHLORIDE 105 mmol/L (97-110); CREATININE 3.41 mg/dl (0.44-1.00); GLUCOSE 93 mg/dl (70-220); POTASSIUM 3.8 mmol/L (3.5-5.1); SODIUM 135 mmol/L (135-144); TOTAL PROTEIN 3.8 g/dl (6.1-8.1)
[2018-04-23 04:54] LABS: MAGNESIUM 1.7 mg/dl (1.7-2.5)
[2018-04-23] MEDS: LORAZEPAM 2 MG INJ IV (05:37)
[2018-04-23] MEDS ORDERED: NORepinephrine 8MG/250 ML (PMX 250 ML (05:45)
[2018-04-23] MEDS: NORepinephrine 8MG/250 ML (PMX 250 ML IV (05:55)
[2018-04-23] MEDS: PANTOPRAZOLE 40 MG INJ IV (06:19)
[2018-04-23] MEDS: TRIAMCINOLONE ACET 0.1% ORAB 5 GM MM ×3 (07:30→16:42)
[2018-04-23] MEDS: LIDOCAINE 2% VISC 15 ML CUP PO ×4 (09:00→21:00)
[2018-04-23] MEDS ORDERED: FENTAnyl (DRIP) 1000 mcg/100mL 100 ML IV (09:00)
[2018-04-23] MEDS: DOCUSATE SODIUM 100 MG CAP PO (09:00)
[2018-04-23] MEDS: SUCRALFATE (100 MG/ML) 10ML CUP PO ×4 (09:34→21:20)
[2018-04-23] MEDS: MULTIVITAMINS THERAPEUTIC TAB PO (09:34)
[2018-04-23] MEDS: MIDODRINE 5 MG TAB PO ×3 (09:34→16:22)
[2018-04-23] MEDS: POLYETHYLENE GLYCOL 17 GM PACKET PO (09:34)
[2018-04-23] MEDS: NYSTATIN SUSP 5 ML CUP PO ×4 (09:34→21:20)
[2018-04-23] MEDS: LACTOBACILLUS RHAMNOSUS CAP PO ×3 (09:34→16:41)
[2018-04-23] MEDS: SALINE 0.65% 45 ML NAS SPRAY NASAL ×2 (09:35→21:20)
[2018-04-23] MEDS: FLUCONAZOLE 100 MG TAB PO (09:37)
[2018-04-23] MEDS: PROPOFOL 100 ML IV ×2 (09:37→21:00)
[2018-04-23] MEDS: FENTAnyl (DRIP) 1000 mcg/100mL 100 ML IV (10:18)
[2018-04-23] MEDS: METHYLPREDNISOLONE 125 MG INJ IV ×2 (11:39→22:46)
[2018-04-23] MEDS: ALBUMIN HUMAN 25% 100 ML IV ×2 (17:59→19:49)
[2018-04-23] MEDS: HEPARIN 1000 UNITS/ML 10 ML INJ CATHETER (21:14)
[2018-04-23] MEDS: NEOMYC/POLYMYX/BACIT 30 GM OINT TOP (21:21)
[2018-04-23] MEDS: BALSAM PERU/CASTOR OIL 60 GM TUBE TOP (21:21)
[2018-04-24] MEDS: ALBUTEROL HFA 8 GM INHALER INH ×4 (01:00→19:44)
[2018-04-24 05:41] LABS: ADD MAN DIFF? NO
[2018-04-24 05:43] LABS: WHITE BLOOD COUNT 7.8 10^3/ul (4.8-10.8)
[2018-04-24 05:43] LABS: ABNORMAL IP MESSAGE 1; HEMATOCRIT 37.4 % (37.0-47.0); HEMOGLOBIN 12.3 g/dl (12.0-16.0); LYMPHOCYTES # 0.4 10^3/ul (0.8-2.9); LYMPHOCYTES % 4.9 % (15.0-51.0); MEAN CORPUSCULAR HEMOGLOBIN 30.8 pg (29.0-33.0); MEAN CORPUSCULAR HGB CONC 32.9 g/dl (32.0-37.0); MEAN CORPUSCULAR VOLUME 93.7 fl (82.0-101.0); MEAN PLATELET VOLUME 10.4 fl (7.4-10.4); MONOCYTE # 0.2 10^3/ul (0.3-0.9); MONOCYTES % 2.4 % (0.0-11.0); NEUTROPHIL # 7.2 10^3/ul (1.6-7.5); NEUTROPHILS % 92.1 % (39.0-77.0); PLATELET COUNT 56 10^3/UL (140-415); RED BLOOD COUNT 3.99 10^6/ul (4.20-5.40); RED CELL DISTRIBUTION WIDTH 19.2 % (11.5-14.5)
[2018-04-24 05:49] LABS: POSITIVE DIFF @See below
[2018-04-24] MEDS: PANTOPRAZOLE 40 MG INJ IV (06:04)
[2018-04-24] MEDS: METHYLPREDNISOLONE 125 MG INJ IV ×3 (06:04→22:17)
[2018-04-24 06:10] LABS: ALBUMIN 2.3 g/dl (3.3-4.9); ANION GAP 12 (8-16); BLOOD UREA NITROGEN 30 mg/dl (7-20); CALCIUM 7.7 mg/dl (8.4-10.2); CARBON DIOXIDE 22 mmol/L (21-31); CHLORIDE 106 mmol/L (97-110); CREATININE 2.91 mg/dl (0.44-1.00); GLUCOSE 169 mg/dl (70-220); MAGNESIUM 1.8 mg/dl (1.7-2.5); PHOSPHORUS 4.2 mg/dl (2.5-4.9); POTASSIUM 4.1 mmol/L (3.5-5.1); SODIUM 136 mmol/L (135-144)
[2018-04-24 06:18] LABS: ALANINE AMINOTRANSFERASE 24 IU/L (13-69); ALBUMIN 2.3 g/dl (3.3-4.9); ALBUMIN/GLOBULIN RATIO 1.09; ALKALINE PHOSPHATASE 110 IU/L (42-121); ANION GAP 12 (8-16); ASPARTATE AMINO TRANSFERASE 35 IU/L (15-46); BILIRUBIN,INDIRECT 0.6 mg/dl (0-1.1); BILIRUBIN,TOTAL 0.6 mg/dl (0.2-1.3); BLOOD UREA NITROGEN 29 mg/dl (7-20); CALCIUM 7.8 mg/dl (8.4-10.2); CARBON DIOXIDE 24 mmol/L (21-31); CHLORIDE 104 mmol/L (97-110); CREATININE 3.02 mg/dl (0.44-1.00); GLUCOSE 169 mg/dl (70-220); POTASSIUM 3.9 mmol/L (3.5-5.1); SODIUM 136 mmol/L (135-144); TOTAL PROTEIN 4.4 g/dl (6.1-8.1)
[2018-04-24 06:22] LABS: ANION GAP 12 (8-16); BLOOD UREA NITROGEN 29 mg/dl (7-20); CALCIUM 7.8 mg/dl (8.4-10.2); CARBON DIOXIDE 24 mmol/L (21-31); CHLORIDE 105 mmol/L (97-110); CREATININE 2.97 mg/dl (0.44-1.00); GLUCOSE 170 mg/dl (70-220); PHOSPHORUS 4.2 mg/dl (2.5-4.9); POTASSIUM 3.9 mmol/L (3.5-5.1); SODIUM 137 mmol/L (135-144)
[2018-04-24] MEDS: LACTOBACILLUS RHAMNOSUS CAP PO ×3 (07:35→17:01)
[2018-04-24] MEDS: DOCUSATE SODIUM 100 MG CAP PO (08:03)
[2018-04-24] MEDS: PROPOFOL 100 ML IV ×2 (08:03→21:00)
[2018-04-24] MEDS: POLYETHYLENE GLYCOL 17 GM PACKET PO (08:03)
[2018-04-24] MEDS: SUCRALFATE (100 MG/ML) 10ML CUP PO ×4 (08:03→21:32)
[2018-04-24] MEDS: MULTIVITAMINS THERAPEUTIC TAB PO (08:04)
[2018-04-24] MEDS: FENTAnyl (DRIP) 1000 mcg/100mL 100 ML IV (08:13)
[2018-04-24] MEDS: TRIAMCINOLONE ACET 0.1% ORAB 5 GM MM ×3 (08:25→17:01)
[2018-04-24] MEDS: BALSAM PERU/CASTOR OIL 60 GM TUBE TOP ×2 (09:01→21:33)
[2018-04-24] MEDS: NEOMYC/POLYMYX/BACIT 30 GM OINT TOP ×2 (09:01→12:16)
[2018-04-24] MEDS: LIDOCAINE 2% VISC 15 ML CUP PO ×4 (09:01→21:44)
[2018-04-24] MEDS: SALINE 0.65% 45 ML NAS SPRAY NASAL ×2 (09:02→21:33)
[2018-04-24] MEDS: NYSTATIN SUSP 5 ML CUP PO ×4 (09:02→21:32)
[2018-04-24] MEDS: MIDODRINE 5 MG TAB PO ×3 (09:02→16:59)
[2018-04-24] MEDS: FLUCONAZOLE 100 MG TAB PO (09:02)
[2018-04-24 10:21] LABS: LACTATE DEHYDROGENASE 519 IU/L (313-618)
[2018-04-24 13:02] LABS: MITOCHONDRIAL TB NEGATIVE (NEGATIVE); SMOOTH MUSCLE AB SCREEN NEGATIVE (NEGATIVE)
[2018-04-24] MEDS: SOD CHLORIDE 0.9% 1,000 ML IV (13:07)
[2018-04-24] MEDS ORDERED: MIDAZOLAM 1 MG/ML 2 ML INJ ×2 (13:29→13:55)
[2018-04-24] MEDS ORDERED: EPHEDrine SULFATE 50 MG/5 ML SYG (14:44)
[2018-04-24] MEDS: CASPOFUNGIN 70 MG in SOD CHLORIDE 0.9% 250 ML IVPB (16:59)
[2018-04-24] MEDS: TRIAMCINOLONE ACET 0.1% 60 ML LOT TOP ×2 (21:00)
[2018-04-24] MEDS: TRIAMCINOLONE ACET 0.1% 15 GM CR TOP (23:30)
[2018-04-25] MEDS: ALBUTEROL HFA 8 GM INHALER INH ×4 (01:46→19:32)
[2018-04-25] MEDS: PANTOPRAZOLE 40 MG INJ IV (05:36)
[2018-04-25] MEDS: METHYLPREDNISOLONE 125 MG INJ IV ×3 (05:36→22:39)
[2018-04-25] MEDS: NYSTATIN SUSP 5 ML CUP PO ×4 (08:08→20:43)
[2018-04-25] MEDS: MULTIVITAMINS THERAPEUTIC TAB PO (08:08)
[2018-04-25] MEDS: POLYETHYLENE GLYCOL 17 GM PACKET PO (08:08)
[2018-04-25] MEDS: TRIAMCINOLONE ACET 0.1% 15 GM CR TOP ×3 (08:08→20:44)
[2018-04-25] MEDS: LIDOCAINE 2% VISC 15 ML CUP PO ×4 (08:08→20:43)
[2018-04-25] MEDS: LACTOBACILLUS RHAMNOSUS CAP PO ×3 (08:08→16:54)
[2018-04-25] MEDS: SUCRALFATE (100 MG/ML) 10ML CUP PO ×4 (08:09→20:43)
[2018-04-25] MEDS: SALINE 0.65% 45 ML NAS SPRAY NASAL ×2 (08:09→20:44)
[2018-04-25] MEDS: DOCUSATE SODIUM 100 MG CAP PO (08:09)
[2018-04-25] MEDS: MIDODRINE 5 MG TAB PO ×3 (08:09→16:54)
[2018-04-25] MEDS: TRIAMCINOLONE ACET 0.1% ORAB 5 GM MM ×3 (08:10→16:54)
[2018-04-25 08:57] LABS: ADD MAN DIFF? NO
[2018-04-25 08:59] LABS: WHITE BLOOD COUNT 12.6 10^3/ul (4.8-10.8)
[2018-04-25 08:59] LABS: ABNORMAL IP MESSAGE 1; BASOPHILS % 0.2 % (0.0-2.0); HEMATOCRIT 44.3 % (37.0-47.0); HEMOGLOBIN 14.3 g/dl (12.0-16.0); LYMPHOCYTES # 0.3 10^3/ul (0.8-2.9); LYMPHOCYTES % 2.6 % (15.0-51.0); MEAN CORPUSCULAR HEMOGLOBIN 30.6 pg (29.0-33.0); MEAN CORPUSCULAR HGB CONC 32.3 g/dl (32.0-37.0); MEAN CORPUSCULAR VOLUME 94.9 fl (82.0-101.0); MEAN PLATELET VOLUME 12.4 fl (7.4-10.4); MONOCYTE # 0.2 10^3/ul (0.3-0.9); MONOCYTES % 1.5 % (0.0-11.0); NEUTROPHILS % 95.3 % (39.0-77.0); PLATELET COUNT 68 10^3/UL (140-415); RED BLOOD COUNT 4.67 10^6/ul (4.20-5.40); RED CELL DISTRIBUTION WIDTH 19.3 % (11.5-14.5)
[2018-04-25] MEDS: BALSAM PERU/CASTOR OIL 60 GM TUBE TOP ×2 (09:17→20:44)
[2018-04-25] MEDS: SOD CHLORIDE 0.9% 1,000 ML IV (09:17)
[2018-04-25 09:19] LABS: POSITIVE DIFF @See below
[2018-04-25] MEDS: FENTAnyl (DRIP) 1000 mcg/100mL 100 ML IV (09:25)
[2018-04-25 09:37] LABS: ALBUMIN 2.1 g/dl (3.3-4.9); ANION GAP 11 (8-16); BLOOD UREA NITROGEN 40 mg/dl (7-20); CARBON DIOXIDE 22 mmol/L (21-31); CHLORIDE 108 mmol/L (97-110); CREATININE 3.33 mg/dl (0.44-1.00); GLUCOSE 138 mg/dl (70-220); PHOSPHORUS 4.8 mg/dl (2.5-4.9); POTASSIUM 4.3 mmol/L (3.5-5.1); SODIUM 137 mmol/L (135-144)
[2018-04-25] MEDS: ERGOCALCIFEROL (8000 UNITS/ML PO SYG) NGT (09:59)
[2018-04-25] MEDS ORDERED: ERGOCALCIFEROL (8000 UNITS/ML PO SYG) NGT (10:00)
[2018-04-25] MEDS: CASPOFUNGIN 50 MG in SOD CHLORIDE 0.9% 250 ML IVPB (17:05)
[2018-04-25 18:01] LABS: HAPTOGLOBIN 104 mg/dL (43-212)
[2018-04-26] MEDS: ALBUTEROL HFA 8 GM INHALER INH (01:00)
[2018-04-26] MEDS: PANTOPRAZOLE 40 MG INJ IV (05:06)
[2018-04-26] MEDS: METHYLPREDNISOLONE 125 MG INJ IV ×2 (05:06→13:17)
[2018-04-26] MEDS: SOD CHLORIDE 0.9% 1,000 ML IV (05:30)
[2018-04-26 06:13] LABS: WHITE BLOOD COUNT 12.8 10^3/ul (4.8-10.8)
[2018-04-26 06:13] LABS: ABNORMAL IP MESSAGE 1; ADD MAN DIFF? NO; BASOPHILS % 0.2 % (0.0-2.0); HEMATOCRIT 43.3 % (37.0-47.0); HEMOGLOBIN 13.9 g/dl (12.0-16.0); LYMPHOCYTES # 0.3 10^3/ul (0.8-2.9); LYMPHOCYTES % 2.1 % (15.0-51.0); MEAN CORPUSCULAR HEMOGLOBIN 30.2 pg (29.0-33.0); MEAN CORPUSCULAR HGB CONC 32.1 g/dl (32.0-37.0); MEAN CORPUSCULAR VOLUME 93.9 fl (82.0-101.0); MEAN PLATELET VOLUME 10.9 fl (7.4-10.4); MONOCYTE # 0.2 10^3/ul (0.3-0.9); MONOCYTES % 1.3 % (0.0-11.0); NEUTROPHIL # 12.3 10^3/ul (1.6-7.5); NEUTROPHILS % 96.1 % (39.0-77.0); PLATELET COUNT 70 10^3/UL (140-415); RED BLOOD COUNT 4.61 10^6/ul (4.20-5.40); RED CELL DISTRIBUTION WIDTH 19.2 % (11.5-14.5)
[2018-04-26 06:21] LABS: POSITIVE DIFF @See below
[2018-04-26 06:55] LABS: ANION GAP 13 (8-16); BLOOD UREA NITROGEN 51 mg/dl (7-20); CALCIUM 7.8 mg/dl (8.4-10.2); CARBON DIOXIDE 21 mmol/L (21-31); CHLORIDE 107 mmol/L (97-110); CREATININE 4.07 mg/dl (0.44-1.00); GLUCOSE 152 mg/dl (70-220); POTASSIUM 4.6 mmol/L (3.5-5.1); SODIUM 136 mmol/L (135-144)
[2018-04-26] MEDS: ONDANSETRON 4 MG INJ IV (07:41)
[2018-04-26 08:05] LABS: ANION GAP 11 (8-16); BLOOD UREA NITROGEN 52 mg/dl (7-20); CALCIUM 7.8 mg/dl (8.4-10.2); CARBON DIOXIDE 21 mmol/L (21-31); CHLORIDE 108 mmol/L (97-110); CREATININE 4.09 mg/dl (0.44-1.00); GLUCOSE 149 mg/dl (70-220); PHOSPHORUS 4.7 mg/dl (2.5-4.9); POTASSIUM 4.7 mmol/L (3.5-5.1); SODIUM 135 mmol/L (135-144)
[2018-04-26 08:43] LABS: AADO2 Arterial 422.3 mmHg (7.0-24.0); Allen Test ACCEPTAB; Arterial Base Excess -5.7 mmol/L (-3.0-3); Arterial Blood Gas Oxygen Sat 99.2 mmHG (95.0-98.0); Arterial COHb 0.9 % (0.0-3.0); Arterial HCO3 17.8 mmol/L (22.0-26.0); Arterial MetHb 0.3 % (0.0-1.5); Arterial Total Hemglobin 16.3 g/dl (12.0-18.0); Arterial pCO2 30.3 mmhg (35-45); MODE MASK - NRB; Site Right Radial
[2018-04-26] MEDS: TRIAMCINOLONE ACET 0.1% 15 GM CR TOP ×2 (09:33→13:00)
[2018-04-26] MEDS: BALSAM PERU/CASTOR OIL 60 GM TUBE TOP (09:34)
[2018-04-26] MEDS: SALINE 0.65% 45 ML NAS SPRAY NASAL (09:34)
[2018-04-26] MEDS: LACTOBACILLUS RHAMNOSUS CAP PO ×3 (09:34→16:51)
[2018-04-26] MEDS: MULTIVITAMINS THERAPEUTIC TAB PO (09:43)
[2018-04-26] MEDS: SUCRALFATE (100 MG/ML) 10ML CUP PO ×3 (09:43→16:49)
[2018-04-26] MEDS: DOCUSATE SODIUM 100 MG CAP PO (09:43)
[2018-04-26] MEDS: NYSTATIN SUSP 5 ML CUP PO ×3 (09:43→16:50)
[2018-04-26] MEDS: MIDODRINE 5 MG TAB PO ×3 (09:43→16:50)
[2018-04-26] MEDS: TRIAMCINOLONE ACET 0.1% ORAB 5 GM MM ×3 (09:44→16:50)
[2018-04-26] MEDS: POLYETHYLENE GLYCOL 17 GM PACKET PO (09:44)
[2018-04-26] MEDS: LIDOCAINE 2% VISC 15 ML CUP PO ×3 (09:44→16:50)
[2018-04-26] MEDS ORDERED: morphine 2 MG INJ IV (11:00)
[2018-04-26] MEDS: METOCLOPRAMIDE 10 MG INJ IV ×2 (11:56→18:28)
[2018-04-26] MEDS ORDERED: HYDROmorphONE 1 MG/ML SYG IV (12:00)
[2018-04-26] MEDS ORDERED: HYDROmorphONE 1 MG/ML SYG (14:02)
[2018-04-26] MEDS: SCOPOLAMINE 1.5 MG PATCH TRANSDERM (14:23)
[2018-04-26] MEDS: HYDROmorphONE 1 MG/ML SYG IV ×2 (14:23→17:10)
[2018-04-26] MEDS: LEVALBUTEROL (NEB) 0.63 MG/3 ML AMP HHN (16:19)
[2018-04-26] MEDS: CASPOFUNGIN 50 MG in SOD CHLORIDE 0.9% 250 ML IVPB (16:46)
[2018-04-26] MEDS ORDERED: ARTIFICIAL TEARS 15 ML OPH BOTH EYES ×2 (17:30→18:06)
[2018-04-26] MEDS ORDERED: HYDROmorphONE 50 MG in DEXTROSE 5% 45 ML IV (17:30)
[2018-04-26] MEDS ORDERED: DIMETHICONE STICK TOP (17:30)
[2018-04-26] MEDS: HYDROmorphONE 50 MG in DEXTROSE 5% 45 ML IV (18:38)
== END 2018-04-26 20:40 | disposition expired | DRG 270 ==
LOC: TEL 03-31 00:58 → ICU 04-03 12:25 → 6WM 04-05 12:07 → TEL 04-10 07:10 → ICU 04-22 20:43 → E/R 15:47 → TEL 17:50
PROC: 0W9D3ZZ Drainage of Pericardial Cavity, Percutaneous Approach (ICD-10-PCS; 2018-04-03 10:30)
PROC: 0W9D00Z Drainage of Pericardial Cavity with Drainage Device, Open Approach (ICD-10-PCS; principal; 2018-04-03 11:06)
PROC: 0BNL0ZZ Release Left Lung, Open Approach (ICD-10-PCS; 2018-04-03 11:06)
PROC: 0W9G3ZZ Drainage of Peritoneal Cavity, Percutaneous Approach (ICD-10-PCS; 2018-04-03 11:06)
PROC: 0W993ZZ Drainage of Right Pleural Cavity, Percutaneous Approach (ICD-10-PCS; 2018-04-03 11:06)
PROC: B5131ZA Fluoroscopy of Right Jugular Veins using Low Osmolar Contrast, Guidance (ICD-10-PCS; 2018-04-03 11:06)
PROC: 02H633Z Insertion of Infusion Device into Right Atrium, Percutaneous Approach (ICD-10-PCS; 2018-04-03 11:06)
PROC: 5A1D70Z Performance of Urinary Filtration, Intermittent, Less than 6 Hours Per Day (ICD-10-PCS; 2018-04-03 11:06)
PROC: 0W993ZZ Drainage of Right Pleural Cavity, Percutaneous Approach (ICD-10-PCS; 2018-04-03 11:06)
PROC: 0W9G3ZZ Drainage of Peritoneal Cavity, Percutaneous Approach (ICD-10-PCS; 2018-04-03 11:06)
PROC: 0W9930Z Drainage of Right Pleural Cavity with Drainage Device, Percutaneous Approach (ICD-10-PCS; 2018-04-03 11:06)
PROC: 5A1945Z Respiratory Ventilation, 24-96 Consecutive Hours (ICD-10-PCS; 2018-04-03 11:06)
DX: I31.3 Pericardial effusion (noninflammatory) (principal); J96.00 Acute respiratory failure, unspecified whether with hypoxia or hypercapnia; N17.0 Acute kidney failure with tubular necrosis; I50.41 Acute combined systolic (congestive) and diastolic (congestive) heart failure; J90 Pleural effusion, not elsewhere classified; K51.90 Ulcerative colitis, unspecified, without complications; R18.8 Other ascites; R57.9 Shock, unspecified; E87.1 Hypo-osmolality and hyponatremia; E87.2 Acidosis; I13.0 Hypertensive heart and chronic kidney disease with heart failure and stage 1 through stage 4 chronic kidney disease, or unspecified chronic kidney disease; B37.49 Other urogenital candidiasis; N17.9 Acute kidney failure, unspecified; B37.0 Candidal stomatitis; I31.4 Cardiac tamponade; R06.03 Acute respiratory distress; Z66 Do not resuscitate; E87.5 Hyperkalemia; R21 Rash and other nonspecific skin eruption; K12.1 Other forms of stomatitis; R59.1 Generalized enlarged lymph nodes; N18.9 Chronic kidney disease, unspecified; D69.6 Thrombocytopenia, unspecified; I46.9 Cardiac arrest, cause unspecified; K74.60 Unspecified cirrhosis of liver; N05.9 Unspecified nephritic syndrome with unspecified morphologic changes; R13.10 Dysphagia, unspecified
CPT/HCPCS: 33010; 36415; 36556; 36600; 71045; 75989; 76705; 76775; 76942; 80048; 80053; 80069; 81001; 81003; 82042; 82043; 82150; 82164; 82306; 82595; 82652; 82803; 82945; 82962; 83010; 83036; 83605; 83615; 83735; 83880; 83935; 83986; 84100; 84145; 84155; 84157; 84300; 84484; 85025; 85610; 86021; 86038; 86160; 86226; 86255; 86376; 86430; 86480; 86703; 86704; 86709; 86803; 86850; 86900; 86901; 87040; 87070; 87081; 87086; 87102; 87116; 87340; 87536; 88104; 88305; 89051; 90935; 92526; 92610; 93005; 93306; 93308; 94002; 94003; 94640; 94644; 94660; 94664; 94770; 96374; 97161; 99285-25